=== PATIENT | female | born 1950 | race Caucasian/White ===

== ENCOUNTER 2022-10-31 07:26 | Outpatient (CLI) | payer MEDICARE, MEDICAID, SELFPAY ==
--- NOTE | ~2022-10-31 | PE_ITS ---
EXAMINATION: PET skull to mid thigh DATE: 10/31/2022 11:07 INDICATION: Multiple lung nodules TECHNIQUE: Blood glucose level was 104 mg/dL. 9.590 mCi of 18-fluorodeoxyglucose (18-FDG) was adminis tered i.v. Low dose computed tomography (CT) images were acquired from the base of the brain to the p roximal thighs for attenuation correction and anatomic localization. Positron emission tomography (PE T) images were acquired in the same distribution beginning 50 minutes after injection. Images includi ng fused PET/CT images were reconstructed in axial, coronal, and sagittal planes. Automated exposure control technique was employed. The dose-length product was 349.81mGy-cm. COMPARISON: None FINDINGS: Head/neck: There is symmetric increased activity in the oral cavity, palatine tonsils, parotid glands, submandi bular glands, laryngeal muscles, ocular muscles, upper cervical paraspinal muscles, right scalene mus gregor and bilateral sternocleidomastoid muscles, right greater than left, all without concerning CT cor relate and likely physiologic. No pathologically enlarged cervical lymphadenopathy or suspicious foci of increased FDG uptake in the visualized head or neck. Chest: Mild emphysema. 4 mm right upper lobe nodule. There is mild linear atelectasis/scarring at the bilate ral lung bases. Large calcified right lower lobe nodule and calcified right hilar and mediastinal lym ph nodes consistent with old granulomatous disease. There are several bilateral small noncalcified pu lmonary nodules. The largest nodule, also with the greatest FDG uptake measures 6 mm in maximal diame ter in the right middle lobe with maximal SUV of 2.6 which remains slightly below the level of the li cristo and dimitri views 2.8. No pleural effusion. Heart size is normal. Atherosclerotic coronary artery calcific location. No pericardial effusion. Thoracic aorta is normal in caliber. Minimal pathologica lly enlarged or abnormal FDG avid lymphadenopathy. Intrathoracic goiter with asymmetric enlargement o f the left thyroid lobe but without discrete thyroid nodule or abnormal increased FDG uptake. There i s increased FDG uptake in the right paraspinal musculature at the level of T7 without radiologic linda elate and also likely physiologic. Mild increased uptake associated with a healing fracture of the an terior right seventh rib. No other suspicious lytic, blastic or FDG avid bone lesions. Abdomen/pelvis/proximal thighs: Physiologic renal accumulation and excretion of FDG activity in the kidneys, bladder and along portio ns of ureters. Normal degree and heterogenous pattern of increased uptake throughout the liver withou t radiologic correlate or dominant FDG avid lesion. The gallbladder, pancreas, spleen and bilateral a drenal glands are normal. Mild to moderate uptake scattered throughout the bowels including the stoma ch without radiologic correlate, also likely physiologic. No other abnormal foci of increased FDG upt nick or pathologically enlarged lymphadenopathy in the abdomen, pelvis or proximal thighs. There is mi ld likely physiologic uptake extending craniocaudally along the left rectus femoris muscle without ra diologic correlate. Severe lumbar spondylosis with mild likely degenerative uptake associated with re gions of moderate type III sclerotic degenerative endplate changes and severe facet osteoarthritis. N o other suspicious FDG avid lytic or blastic bone lesions. IMPRESSION: 1. Minimal FDG activity associated with several noncalcified pulmonary nodules, the largest measuring 6 mm in the right middle lobe which remains below level of activity in the liver. Although most like ly old granulomatous disease sensitivity on PET for nodules this size is low and would recommend cont inued radiographic follow-up with CT in 6-12 months and correlation with any prior outside imaging.
[2022-10-31 09:40] LABS: Glucose Point of Care 104 mg/dl (65-105)
== END 2022-10-31 07:27 | disposition home or self-care (01) ==
PROVIDERS: PCP Internal Medicine
DX: R91.8 Other nonspecific abnormal finding of lung field (principal)
CPT/HCPCS: 78815; A9552

== ENCOUNTER 2024-12-01 12:33 | Outpatient (CLI) | payer MEDICARE, MEDICAID, SELFPAY ==
--- OUTSIDE RECORDS SUMMARY | 2024-12-01 14:11 | XMS_ITS | Referral Summary ---
Author Organization [facility] Address [facility] [place] [address] Care Team Providers Care Blocker Automatic Name Role Phone Aurelio Temple MD Primary Care Provider Allergies No known active allergies Medications alendronate (FOSAMAX) 70 mg tablet Take 70 mg by mouth once a week. TAKE 1 TAB BY MOUTH WEEKLY 0 02/25/2018 Active VENTOLIN HFA 90 mcg/actuation inhaler INL 2 PFS PO Q 4 H PRN 3 03/19/2018 Active PULMICORT FLEXHALER 180 mcg/actuation inhaler INL 2 PFS PO BID 3 03/20/2018 Active calcium carbonate-vitam in D3 500 mg(1,250mg) -400 unit chewable tablet Take 2 tablets by mouth every morning. Active atorvastatin (LIPITOR) 40 mg tablet TK 1 T PO QD 3 07/09/2018 Active fluticasone propionate (Flovent HFA) 110 mcg/actuation inhaler Flovent HFA 110 mcg/actuatio n aerosol inhaler Active HYDROcodone-parvin taminophen (NORCO) 5-325 mg per tablet Take 1 tablet by mouth 3 (three) times a day as needed 01/27/2021 Active dicyclomine (BENTYL) 10 mg capsule Take 10 mg by mouth 2 (two) times a day 01/14/2021 Active Active Problems Problem Noted Date Diagnosed Date Leg mass, right 04/19/2018 Overview (04/19/2018): Added automatically from request for surgery [id number] Immunizations Immunization Administration Dates Next Due Influenza, Quadrivalent, Split, Intramuscular Influenza, Trivalent, IM (MDV) 08/04/2015 Pneumococcal Conjugate PCV 13 02/22/2015 Td, adsorbed 06/15/2015 Tetanus toxoid, adsorbed 06/15/2015 Social History Tobacco Use Types Packs/Day Years Used Date Smoking Tobacco: Every Day Cigarettes 1.5 57.1 Started: 1967 Smokeless Tobacco: Never Tobacco Cessation:Counseling Given: Yes Alcohol Use Standard Drinks/Week Comments Yes 0 (1 standard drink = 0.6 oz pur e alcohol) rare AUDIT-C Answer Date Recorded Q1: How often do you have a drink containing alc ohol? 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[employer] Gender Identity Not on file Sexual Orientation Not on file Last Filed Vital Signs Vital Sign Reading Time Taken Comments Blood Pressure 153/94 08/05/2018 11:30 AM CDT Pulse 84 08/05/2018 11:30 AM CDT Temperature 36 C (96.8 F) 05/17/2018 10:50 AM CDT Respiratory Rate 15 08/05/2018 11:30 AM CDT Oxygen Saturation 93% 08/05/2018 11:30 AM CDT Inhaled Oxygen Concentration - - Weight 51.1 kg (112 lb 9.6 oz) 02/15/2021 9:48 A M CDT Height 152.4 cm (5') 02/15/2021 9:48 AM CDT Body Mass Index 21.99 02/15/2021 9:48 AM CDT Plan of Treatment Not on file Insurance [facility] MEDICARE SOLUTIONS MEDICARE [employer] MEDICARE SOLUTIONS Care Teams Blocker Automatic Relationship Specialty Start Date End Date Aurelio Temple MD PCP - General Internal Medicine 03/08/18
--- OUTSIDE RECORDS SUMMARY | 2024-12-01 14:11 | XMS_ITS | Clinical Summary ---
Author Organization [facility] Address [facility] [place] [address] Care Team Providers Care Brokerage Purchase And Sale Clerk Name Role Phone Aurelio Temple MD Primary [...] (04/19/2018): Added automatically from request for surgery [id number] Immunizations Immunization Administration Dates Next Due Influenza, Quadrivalent, Split, Intramuscular Influenza, Trivalent, IM (MDV) 08/04/2015 Pneumococcal Conjugate PCV 13 02/22/2015 Td, adsorbed 06/15/2015 Tetanus toxoid, adsorbed 06/15/2015 Surgical History Surgery Date Site/Laterality Comments HYSTERECTOMY 10/08/1981 - 10/07/1982 BLADDER SURGERY 10/08/1999 - 10/07/2000 SHOULDER SURGERY 10/08/2014 - 10/07/2015 EYE SURGERY 10/08/2016 - 10/07/2017 cataract FLUORO GUIDED INJECTION SHOU LDER RIGHT 08/05/2018 Right FLUORO GUIDED INJECTION SHOU LDER RIGHT 11/06/2018 Right Medical History Medical History Date Comments Hypercholesteremia Infectious viral hepatitis Osteoporosis Arthritis COPD (chronic obstructive pulmonary disease) (HC C) Family History Medical History Relation Name Comments Heart disease Brother Alzheimer's disease Father Cancer Father Hypertension Father Heart disease Mother Hypertension Mother Heart disease Sister Relation Name Status Comments Brother Father Mother Sister Social History Tobacco Use Types Packs/Day Years [...] on file 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
--- OUTSIDE RECORDS SUMMARY | 2024-12-01 14:11 | XMS_ITS | Data Portability ---
Author Organization [facility] YUMIKOIsatu Shirley Address [address] [place] [address] Care Team Providers Care Biometric Fingerprinting Technician Name Role Phone NATASHA TEMPLE Primary Care Provider Unavailabl e Assessment Encounter Date Assessment Date Assessment LastModified by Organization Details LastModified Time 12/20/2023 12/20/2023 Medical problems have been discussed refuses to take any immunizations those have been recommended she will follow-up with me in 4 months all her medicines have been reviewed as well as her diagnosis [email or web address] Not available 12/20/2023 21:43:52 03/12/2024 03/12/2024 Again smoking cessation has been discussed in detail blood work has been ordered we have given her a drug holiday from Fosamax before we may consider. After proper interval and bone mineral density she will follow-up with me in 4 months [email or web address] Not available 03/12/2024 21:58:39 07/09/2024 07/09/2024 Underwent health y food care instructions COPD hyperlipidemia and osteoporosis and osteoarthritis discussed her blood pressure was discussed she is going to back off caffeine she would like to try some conservative things walk little bit more eat a little marble cleaner and status starting on medicine just yet we will see her back in 4 months advised to stay up-to-date on COVID RSV flu Pneumovax and LD CT as well as mammogram and colon cancer screening [email or web address] Not available 07/20/2024 20:40:59 07/29/2024 07/29/2024 health assessments discussed collected and reviewed discussed screenings and immunizations ordered were appropriate patient agreeable Not available 08/10/2024 11:40:42 11/14/2024 11/14/2024 continue current therapy follow up in 4 months I have asked her to consider age-appropriate immunizations [email or web address] Not available 11/15/2024 15:47:18 Plan of Treatment Reminders Order Date Submit Date Provider Last Modified By Organization Details Last Modified Time Details Appointments ANY 15 2024 01:30P Maurizio Temple MD Not available Not available Not available Lab CBC w/ auto diff 2023 024 ROSH[facility]ON [facility], [address], [place], [address], 03/13/2024 08:24:04 lipid panel, serum 2023 024 ROSHARON [facility], [address], [place], [address], 03/13/2024 08:24:01 CMP, serum or plasma 2023 024 ROSHARON [facility], [address], [place], [address], 03/13/2024 08:24:03 Referral None recorded . Procedures None recorded . Surgeries None recorded . Imaging None recorded . Medication Orders None recorded . Patient TargetsNo targets recorded. Patient Instructions Encounter Date Encounter Id Patient Instructions Last Modified By Organization Details Last Modified Time 07/09/2024 [id number] eating healthy foods: care instructions [email or web address] Not available 07/20/2024 20:41:25 07/29/2024 [id number] Quitting Tobacco : Care Instructions Not available 07/29/2024 15:32:49 [facility] Preventive Checklist [email or web address] Not available 07/29/2024 15:32:49 eating healthy foods: care instructions [email or web address] Not available 07/29/2024 15:32:49 Reason for Referral None Reported. Results Created Date Observation Date Name Description Value Unit Range Abnormal Flag Note LastModifiedBy Organization Detail LastModifiedTime 03/12/20 24 03/13/2024 LIPID PANEL cholesterol, total 128 mg/dL 100-19 9 Not Available [facility] ([facility]) [address] [facility], [place], [address], 03/13/2024 08:24:01 03/12/20 24 03/13/2024 LIPID PANEL triglyceride s 121 mg/dL 0-149 Not Available [facility] ([facility]) [address] [place], [address], 03/13/2024 08:24:01 03/12/20 24 03/13/2024 LIPID PANEL HDL cholesterol 33 mg/dL >39 below low normal Not Available [facility] ([facility]) [address] [place], [address], 03/13/2024 08:24:01 03/12/20 24 03/13/2024 LIPID PANEL VLDL cholesterol britni 22 mg/dL 5-40 Not Available [facility] ([facility]) [address] [place], [address], 03/13/2024 08:24:01 03/12/20 24 03/13/2024 LIPID PANEL LDL chol calc ([facility]) 73 mg/dL 0-99 Not Available [facility] ([facility]) [address] [place], [address], 03/13/2024 08:24:01 03/12/20 24 03/13/2024 COMP. METAB OLIC PANEL (14) glucose 93 mg/dL 70-99 Not Available [facility] ([facility]) [address] [place], [address], 03/13/2024 08:24:03 03/12/20 24 03/13/2024 COMP. METAB OLIC PANEL (14) BUN 8 mg/dL 8-27 Not Available [facility] ([facility]) [address] [place], [address], 03/13/2024 08:24:03 03/12/20 24 03/13/2024 COMP. METAB OLIC PANEL (14) creatinine 0.72 mg/dL 0.57-1 .00 Not Available [facility] ([facility]) [address] [facility] [place], [address], 03/13/2024 08:24:03 03/12/20 24 03/13/2024 COMP. METAB OLIC PANEL (14) eGFR 88 mL/mi n/1.7 3 >59 Not Available [facility] ([facility]) [address] [place], [address], 03/13/2024 08:24:03 03/12/20 24 03/13/2024 COMP. METAB OLIC PANEL (14) BUN/creatini ne ratio 11 12-28 below low normal Not Available [facility] ([facility]) [address] [place], [address], 03/13/2024 08:24:03 03/12/20 24 03/13/2024 COMP. METAB OLIC PANEL (14) sodium 142 mmol/ L 134-14 4 Not Available [facility] ([facility]) [address] [place], [address], 03/13/2024 08:24:03 03/12/20 24 03/13/2024 COMP. METAB OLIC PANEL (14) potassium 3.4 mmol/ L 3.5-5. 2 below low normal Not Available [facility] ([facility]) [address] [place], [address], 03/13/2024 08:24:03 03/12/20 24 03/13/2024 COMP. METAB OLIC PANEL (14) chloride 97 mmol/ L 96-106 Not Available [facility] ([place] [facility]) [address] [place], [address], 03/13/2024 08:24:03 03/12/20 24 03/13/2024 COMP. METAB OLIC PANEL (14) carbon dioxide, total 29 mmol/ L 20-29 Not Available [facility] ([facility]) [address] [place], [address], 03/13/2024 08:24:03 03/12/20 24 03/13/2024 COMP. METAB OLIC PANEL (14) calcium 9.8 mg/dL 8.7-10 .3 Not Available [facility] ([facility]) [address] [place], [address], 03/13/2024 08:24:03 03/12/20 24 03/13/2024 COMP. METAB OLIC PANEL (14) protein, total 7.4 g/dL 6.0-8. 5 Not Available [facility] ([facility]) [address] [place], [address], 03/13/2024 08:24:03 03/12/20 24 03/13/2024 COMP. METAB OLIC PANEL (14) albumin 3.6 g/dL 3.8-4. 8 below low normal Not Available [facility] ([facility]) [address] [place], [address], 03/13/2024 08:24:03 03/12/20 24 03/13/2024 COMP. METAB OLIC PANEL (14) globulin, total 3.8 g/dL 1.5-4. 5 Not Available [facility] ([facility]) [address] [place], [address], 03/13/2024 08:24:03 03/12/20 24 03/13/2024 COMP. METAB OLIC PANEL (14) A/G ratio 0.9 1.2-2. 2 below low normal Not Available [facility] ([facility]) [address] [place], [address], 03/13/2024 08:24:03 03/12/20 24 03/13/2024 COMP. METAB OLIC PANEL (14) bilirubin, total 0.6 mg/dL 0.0-1. 2 Not Available [facility] ([facility]) [address] [place], [address], 03/13/2024 08:24:03 03/12/20 24 03/13/2024 COMP. METAB OLIC PANEL (14) alkaline phosphatase 154 IU/L 44-121 above high normal Not Available [facility] ([facility]) [address] [facility] [place], [address], 03/13/2024 08:24:03 03/12/20 24 03/13/2024 COMP. METAB OLIC PANEL (14) AST (SGOT) 18 IU/L 0-40 Not Available [facility] ([facility]) [address] [facility] [place], [address], 03/13/2024 08:24:03 03/12/20 24 03/13/2024 COMP. METAB OLIC PANEL (14) ALT (SGPT) 10 IU/L 0-32 Not Available [facility] ([facility]) [address] [facility] [place], [address], 03/13/2024 08:24:03 03/12/20 24 03/13/2024 CBC WITH DIFFE RENTI AL/PL ATELE T WBC 14.5 x10e3 /uL 3.4-10 .8 above high normal Not Available [facility] ([facility]) [address] [facility] [place], [address], 03/13/2024 08:24:04 03/12/20 24 03/13/2024 CBC WITH DIFFE RENTI AL/PL ATELE T RBC 5.26 x10e6 /uL 3.77-5 .28 Not Available [facility] ([facility]) [address] [facility] [place], [address], 03/13/2024 08:24:04 03/12/20 24 03/13/2024 CBC WITH DIFFE RENTI AL/PL ATELE T hemoglobin 15.3 g/dL 11.1-1 5.9 Not Available [facility] ([facility]) [address] [facility] [place], [address], 03/13/2024 08:24:04 03/12/20 24 03/13/2024 CBC WITH DIFFE RENTI AL/PL ATELE T hematocrit 46.4 % 34.0-4 6.6 Not Available [facility] ([facility]) [address] [facility], [place], [address], 03/13/2024 08:24:04 03/12/20 24 03/13/2024 CBC WITH DIFFE RENTI AL/PL ATELE T MCV 88 fL 79-97 Not Available [facility] ([facility]) [address] [facility], [place], [address], 03/13/2024 08:24:04 03/12/20 24 03/13/2024 CBC WITH DIFFE RENTI AL/PL ATELE T MCH 29.1 pg 26.6-3 3.0 Not Available [facility] ([facility]) [address] [facility], [place], [address], 03/13/2024 08:24:04 03/12/20 24 03/13/2024 CBC WITH DIFFE RENTI AL/PL ATELE T MCHC 33.0 g/dL 31.5-3 5.7 Not Available [facility] ([facility]) [address] [facility], [place], [address], 03/13/2024 08:24:04 03/12/20 24 03/13/2024 CBC WITH DIFFE RENTI AL/PL ATELE T RDW 12.5 % 11.7-1 5.4 Not Available [facility] ([facility]) [address] [facility], [place], [address], 03/13/2024 08:24:04 03/12/20 24 03/13/2024 CBC WITH DIFFE RENTI AL/PL ATELE T platelets 323 x10e3 /uL 150-45 0 Not Available [facility] ([facility]) [address] [facility], [place], [address], 03/13/2024 08:24:04 03/12/20 24 03/13/2024 CBC WITH DIFFE RENTI AL/PL ATELE T neutrophils 74 % notest ab. Not Available [facility] ([facility]) [address] [facility], [place], [address], 03/13/2024 08:24:04 03/12/20 24 03/13/2024 CBC WITH DIFFE RENTI AL/PL ATELE T lymphs 18 % notest ab. Not Available [facility] ([facility]) [address] [facility], [place], [address], 03/13/2024 08:24:04 03/12/20 24 03/13/2024 CBC WITH DIFFE RENTI AL/PL ATELE T monocytes 6 % notest ab. Not Available [facility] ([facility]) [address] [facility], [place], [address], 03/13/2024 08:24:04 03/12/20 24 03/13/2024 CBC WITH DIFFE RENTI AL/PL ATELE T eos 1 % notest ab. Not Available [facility] ([facility]) [address] [facility], [place], [address], 03/13/2024 08:24:04 03/12/20 24 03/13/2024 CBC WITH DIFFE RENTI AL/PL ATELE T basos 1 % notest ab. Not Available [facility] ([facility]) [address] [facility] [address], [place], [address], 03/13/2024 08:24:04 03/12/20 24 03/13/2024 CBC WITH DIFFE RENTI AL/PL ATELE T neutrophils (absolute) 10.8 x10e3 /uL 1.4-7. 0 above high normal Not Available [facility] ([facility]) [address] [facility] [address], [place], [address], 03/13/2024 08:24:04 03/12/20 24 03/13/2024 CBC WITH DIFFE RENTI AL/PL ATELE T lymphs (absolute) 2.6 x10e3 /uL 0.7-3. 1 Not Available [facility] ([facility]) [address] [facility] [address], [place], [address], 03/13/2024 08:24:04 03/12/20 24 03/13/2024 CBC WITH DIFFE RENTI AL/PL ATELE T monocytes(ab solute) 0.8 x10e3 /uL 0.1-0. 9 Not Available [facility] ([facility]) [address] [facility] [address], [place], [address], 03/13/2024 08:24:04 03/12/20 24 03/13/2024 CBC WITH DIFFE RENTI AL/PL ATELE T eos (absolute) 0.1 x10e3 /uL 0.0-0. 4 Not Available [facility] ([facility]) [address] [facility] [address], [place], [address], 03/13/2024 08:24:04 03/12/20 24 03/13/2024 CBC WITH DIFFE RENTI AL/PL ATELE T baso (absolute) 0.1 x10e3 /uL 0.0-0. 2 Not Available [facility] ([facility]) [address] [facility], [place], [address], 03/13/2024 08:24:04 03/12/20 24 03/13/2024 CBC WITH DIFFE RENTI AL/PL ATELE T immature granulocytes 0 % notest ab. Not Available [facility] ([facility]) [address] [facility], [place], [address], 03/13/2024 08:24:04 03/12/20 24 03/13/2024 CBC WITH DIFFE RENTI AL/PL ATELE T immature grans (abs) 0.0 x10e3 /uL 0.0-0. 1 Not Available [facility] ([facility]) [address] [facility] [address], [place], [address], 03/13/2024 08:24:04 07/28/20 24 03/06/2023 DEXA No observ ation record ed. Not Available 2023 10:53:46 07/29/20 24 05/03/2020 colon oscop y mahin perdue (PROC ) No observ ation record ed. Natasha Temple MD [address], [place], [address], 07/30/2024 12:07:51 Result Notes None recorded. Problems Name Problem SNOMED Code Status Onset Date Resolution Date Notes Provider Name and Address Organization Details Recorded Time Hyperlipidemia 98201644 Active 2023 Laura Florez MA null, [place] - [facility] 15:55:05 Osteoporosis 39825073 Active 2023 Natasha Temple MD Attn: Accountin g,[address] [facility], [place], [address], [facility] 4 21:53:50 Chronic obstructive pulmonary disease 45509150 Active 2023 Natasha Temple MD Attn: Accountin g,[address] [facility], [place], [address], [facility] - [facility] 4 21:53:50 Chronic pain syndrome 804766170 Active 2023 Natasha Temple MD Attn: Accountin g,[address] [facility], [place], [address], [place] - [facility] 4 21:53:50 Problem Notes None recorded. Procedures Surgical History Date Name Laterality Status Provider Name and Address Organization Details Recorded Time Eye Surgery completed Jani Yee MA [facility] 12/20/2023 16:35:18 Joint Replacement completed Jani Yee MA [facility] 12/20/2023 16:35:25 Tonsillectomy completed Jani Yee MA [facility] 12/20/2023 16:35:32 Dilation and Curettage completed Jani Yee MA [facility] 12/20/2023 16:35:38 partial hysterectomy completed Jani Yee MA [facility] 12/20/2023 16:35:51 Imaging Results Imaging Date Name Status LastModified by Organiz ation Details LastModified Time 03/06/2023 [facility] no t available 07/28/2024 10:53:46 05/03/2020 colon[facility] (PROC[facility] Natasha Temple MD [address], [place], [address], 07/30/2024 12:07:51 Procedure Notes None recorded. Medical Equipment None Reported. Allergies No known drug allergies Medications Name Sig Start Date Stop Date Status Note LastModified by Organization Details LastModified Time atorvastatin 40 mg tablet TAKE 1 TABLET BY MOUTH EVERY DAY active Not Available Not Available No t Available meloxicam 15 mg tablet TAKE 1 TABLET BY MOUTH DAILY NEEDED active Not Available Not Available No t Available alendronate 70 mg tablet TAKE 1 TABLET BY MOUTH EVERY WEEK 2024 active Not Available Not Available Not Avai lable morphine ER 15 mg tablet,extend ed release TAKE 1 TABLET BY MOUTH EVERY 12 HOURS active Not Available Not Available No t Available albuterol sulfate HFA 90 mcg/actuation aerosol inhaler INHALE 1 PUFF BY MOUTH EVERY 4 HOURS NEEDED active Not Available Not Available No t Available dicyclomine 10 mg capsule TAKE 1 CAPSULE BY MOUTH TWICE DAILY active Not Available Not Available No t Available Anoro Ellipta 62.5 mcg-25 mcg/actuation powder for inhalation INHALE 1 PUFF BY MOUTH EVERY DAY active Not Available Not Available No t Available naloxone 4 mg/actuation nasal spray CALL 911. SPR CONTENTS OF ONE SPRAYER (0.1ML) INTO ONE NOSTRIL. REPEAT IN 2-3 MIN IF SYMPTOMS OF OPIOID EMERGENCY PERSIST, ALTERNATE NOSTRILS active Not Available Not Available No t Available Vitals Date Recorded Body weight Body mass index (BMI) Body height Heart rate Oxygen saturation Oxygen saturation in Arterial blood by Pulse oximetry Systolic blood pressure Diastolic blood pressure Provider Name and Address Organization Details Last Updated DateTime 4 43882.1 9 g 16 kg/m2 151.13 cm 90 /min 95 % 95 % 136 mm[Hg] 80 mm[Hg] Jani Yee MA [place] - [facility] 4 16:40:38 Date Recorded Body height Body mass index (BMI) Body weight Heart rate Oxygen saturation Oxygen saturation in Arterial blood by Pulse oximetry Systolic blood pressure Diastolic blood pressure Provider Name and Address Organization Details Last Updated DateTime 4 151.13 cm 16.2 kg/m2 62209.5 g 95 /min 93 % 93 % 128 mm[Hg] 70 mm[Hg] Selma Thapa MA [facility] 4 15:05:12 Date Recorded Body height Body mass index (BMI) Body weight Heart rate Oxygen saturation Oxygen saturation in Arterial blood by Pulse oximetry Systolic blood pressure Diastolic blood pressure Provider Name and Address Organization Details Last Updated DateTime 4 151.13 cm 16.5 kg/m2 22862.1 7 g 86 /min 95 % 95 % 140 mm[Hg] 90 mm[Hg] Elmira Aguilera MA [facility] 4 14:56:13 Date Recorded Body height Body mass index (BMI) Body weight Heart rate Oxygen saturation Oxygen saturation in Arterial blood by Pulse oximetry Systolic blood pressure Diastolic blood pressure Provider Name and Address Organization Details Last Updated DateTime 4 151.13 cm 16.5 kg/m2 92293.8 9 g 84 /min 96 % 96 % 124 mm[Hg] 68 mm[Hg] Selma Thapa MA [facility] 4 14:53:17 Date Recorded Pain severity - 0-10 verbal numeric rating [Score] - Reported Provider Name and Address Organization Details Last Updated DateTime 07/29/2024 0 Margarita Ramos [facility] 07/29/2024 15:07:18 Date Recorded Body height Body mass index (BMI) Body weight Heart rate Oxygen saturation Oxygen saturation in Arterial blood by Pulse oximetry Systolic blood pressure Diastolic blood pressure Provider Name and Address Organization Details Last Updated DateTime 5 151.13 cm 17.1 kg/m2 87023.9 4 g 82 /min 95 % 95 % 122 mm[Hg] 70 mm[Hg] Jani eYe MA [facility] 5 12:46:49 Social History Question Answer Notes LastModified by Organizat ion Details LastModified Time Tobacco Smoking Status Current Every Day Smoker Jani Yee MA null, [facility] 12/20/2023 16:34:12 Do You Have An Advance Directive? No Information n ot available 12/20/2023 What Is Your Level Of Alcohol Consumption? None Information not available 12/20/2023 Are You Blind Or Do You Have Difficulty Seeing? No Information n ot available 12/20/2023 What Is Your Level Of Caffeine Consumption? Heavy Information not available 12/20/2023 In The 14 Days Before Symptom Onset, Have You Had Close Contact With A Laboratory-confirm ed COVID-19 While That Case Was Ill? No Information n ot available 03/12/2024 In The 14 Days Before Symptom Onset, Have You Had Close Contact With A Person Who Is Under Investigation For COVID-19 While That Person Was Ill? No Information not available 03/12/2024 Have You Been To An Area Known To Be High Risk For COVID-19? No Information not available 03/12/2024 Are You Currently Employed? No Information not available 03/12/2024 Are You Deaf Or Do You Have Serious Difficulty Hearing? No Information not available 12/20/2023 What Type Of Diet Are You Following? REGULAR Information n ot available 12/20/2023 Are There Any Guns Present In Your Home? No Information not available 12/20/2023 In The Past 7 Days, How Many Days Did You Exercise? 0 Information not available 07/29/2024 In The Past 7 Days, How Much Pain Have You [place]? None Information not available 07/29/2024 In General, Would You Say You Health Is: Good Information not available 07/29/2024 How Would You Describe The Condition Of Your Mouth And Teeth- Including False Teeth Or Dentures? Good Information n ot available 07/29/2024 Each Night, How Many Hours Of Sleep Do You Get? 5 Information no t available 07/29/2024 Has Anyone Ever Told You That You Snore? Yes Information not available 07/29/2024 In The Past 7 Days, How Often Have You [place] Sleepy In The Daytime? Rarely Information not available 07/29/2024 # Alcohol Drinks Per Week 0 Information not available 07/29/2024 What Was The Date Of Your Most Recent Tobacco Screening? 11/14/2024 Information not available 11/14/2024 What Is Your Current Pack Years? 20-29packyea rs Information not available 12/20/2023 What Is Your Relationship Status? Information not available 12/20/2023 Do You Use Your Seat Belt Or Car Seat Routinely? Yes Information not available 12/20/2023 Do You Have Smoke And Carbon Monoxide Detectors In Your Home? No Information not available 07/29/2024 At What Age Did You Start Smoking Tobacco? 33 Information not available 12/20/2023 How Much Tobacco Do You Smoke? 1 PPD Information not available 12/20/2023 Do You Feel Stressed (tense, Restless, Nervous, Or Anxious, Or Unable To Sleep At Night)? [id number] Information not available 12/20/2023 Do You Use Any Illicit Or Recreational Drugs? No Information not available 12/20/2023 Do You Use Sunscreen Routinely? No Information not available 12/20/2023 Has Tobacco Cessation Counseling Been Provided? Yes Information not available 07/29/2024 On What Date Was Tobacco Cessation Counseling Provided? 11/14/2024 Information not available 11/14/2024 How Many Years Have You Smoked Tobacco? 40 Information not available 12/20/2023 Do You Or Have You Ever Used Any Other Forms Of Tobacco Or Nicotine? No Information not available 12/20/2023 Sex: Female Functional Status Question Answer Note LastModified by Organization D etails LastModified Time Are you able to care for yourself? Yes Information n ot available 12/20/2023 What is your exercise level? None Information not available 12/20/2023 Mental Status None recorded. Family History Relationship Description Onset Age of this Age Resolved Age Notes LastModified by Organization Details LastModified Time Father Dementia [email or web address] Not availa ble 12/20/2023 16:32:44 Father Heart disease [email or web address] Not available 12/06 16:33:03 Father Malignant tumor of prostate [email or web address] Not available 12/06 16:33:12 Brother Heart disease [email or web address] Not available 12/06 16:33:02 Mother Heart disease [email or web address] Not available 12/06 16:33:03 Sister Heart disease [email or web address] Not available 12/06 16:33:03 Medical History Condition Response Coronary Artery Disease N Other N High Blood Pressure N Atrial Fibrillation N Kidney or Bladder Problems N Thyroid Problems N GI Problems N Depression N COPD Y Blood Clots N Have you had a mammogram in the last yea r? N Skin Problems N Anemia N Heart Attack (NE) N Anxiety Disorder N Diabetes N Muscle, Joint, or Bone Problems N Seizures/Epilepsy N Have you had a colonoscopy in the last 1 0 years? Y Acid Reflux (GERD) N Cancer N Stroke N Asthma N Allergies N Have you had a PSA blood test in the las t year? N High Cholesterol Y Hepatitis N Liver Disease N Headaches N Heart Failure N Osteoporosis Y Gynecological HistoryNo gynecological history recorded. Obstetrics History GPAL:G 0 P 0 0 0 0 Immunizations Vaccine Type Date Status Note Provider Nam e and Address Organization Details Recorded Time Influenza, split virus, quadrivalent, preservative 5 completed Margarita wright, [place] - [facility] 07/28/2024 10:48:59 Pneumococcal conjugate PCV 13 5 completed Margarita wright, [place] - [facility] 07/28/2024 10:48:59 Influenza, split virus, trivalent, preservative 5 completed Marg[place] [facility] 07/28/2024 10:48:59 Td (adult), 2 Lf tetanus toxoid, preservative free, adsorbed 5 completed Margar[place] [facility] 07/28/2024 10:48:59 Pneumococcal conjugate PCV20, polysaccharide [id number] conjugate, adjuvant, PF 4 completed Natasha Temple MD Attn: Accounting[address] [place], [address], [facility] - [facility] 08/10/2024 11:40:13 Past Encounters Encounter ID Performer Location Encounter Start Date Encounter Closed Date Diagnosis/Indication Diagnosis SNOMED-CT Code Diagnosis ICD10 Code Diagnosis Note [id number] Natasha Temple MD [facility] (Adult Med) [address] [place] [address] [phone] 12/20/2023 16:01:03 12/20/2023 17:13:38 Chronic obstructive pulmonary disease 08009360 J44.9 Osteoporosis 02132586 M8 1.0 Nicotine dependence 5629 4008 F17.200 Chronic pain syndrome 37 0698650 G89.4 [id number] MD Conrad Rausch (Adult Med) [address] [place] [address] [phone] 03/12/2024 14:44:00 03/12/2024 15:56:14 Hyperlipidemia 82139827 E78.5 Long-term drug therapy [id number] Z79.899 Chronic pain syndrome 37 8865220 G89.4 Chronic ob structive pulmonary disease 85627933 J44.9 Osteoporosis 57914090 M8 1.0 [id number] MD Conrad Rausch (Adult Med) [address] [place] [address] [phone] 07/09/2024 14:28:02 07/09/2024 16:09:10 Underweight 777380569 R63.6 Chronic ob structive pulmonary disease 04067042 J44.9 Hyperlipidemia 67493854 E78.5 Osteoporosis 82835402 M8 1.0 [id number] MD Conrad Rausch (Adult Med) [address] [place] [address] [phone] 07/29/2024 14:40:03 07/29/2024 15:54:02 Adult health examination [id number] Z00.00 Health Risk Assessment collected and reviewed Administra tion of pneumococcal vaccine 15227507 Z23 [id number] MD Conrad Rausch (Adult Med) [address] [place] [address] [phone] 11/14/2024 12:18:19 11/14/2024 13:03:13 Chronic obstructive pulmonary disease [id number] J44.9 Chronic pain syndrome 37 3213258 G89.4 Hyperlipidemia 91796070 E78.5 Osteoporosis 57720865 M8 1.0 Health Concerns Section Related Observation LastModified by Organization Detai ls LastModified Time None Recorded Concern Status LastModified by Organization Details LastModified Time None Recorded Advance Directives Directive N: Payers Encounter Date Sequence Insurance Name Policy Number Policy Mcpherson Covered Member ID Mcpherson Member ID Guarantor Name 12/20/2023 1 [facility] (MEDICARE REPLACEMENT/AD VANTAGE - PPO) [id number] Angela Jacksonman [id number] Angela Moses 12/20/2023 2 [place] [facility] Angela Jacksonman [id number] Angela Moses 03/12/2024 1 [facility] (MEDICARE REPLACEMENT/AD VANTAGE - PPO) [id number] Angela Stahl Moses [id number] Angela Moses 03/12/2024 2 [place] [facility] Angela Jacksonman [id number] Angela Moses 07/09/2024 1 [facility] (MEDICARE REPLACEMENT/AD VANTAGE - PPO) [id number] Angela Maribeth Moses [id number] Angela Moses 07/09/2024 2 [place] OR [place]ARE REPLACEMENT PRIMARY) Angela Jacksonman [id number] Angela Moses 07/29/2024 1 [facility] (MEDICARE REPLACEMENT/AD VANTAGE - PPO) [id number] Angela Moses [id number] Angela Moses 07/29/2024 2 [place]IC[place] REPLACEMENT PRIMARY) Angela Jacksonman [id number] Angela Moses 11/14/2024 1 [facility] (MEDICARE REPLACEMENT/AD VANTAGE - PPO) [id number] Angela Stahl Moses [id number] Angela Moses 11/14/2024 2 [place]ARE OR [place]ICARE REPLACEMENT [place]IMARY) Angela Jacksonman [id number] Angela Moses Notes Date Note Type Note Provider Name and Address Organization Details Recorded Time 12/20/2023 text/html COPD continues t o smoke uses her inhaler no shortness of breath. Taking atorvastatin tries to watch her diet. IBS has been stable osteoarthritis stable she continues to see pain management as well osteoporosis taking takes the alendronate without any side effects Natasha Temple MD Attn: Accounting,[address], [place], [address], [place] [facility] 12/20/2023 21:44:10 03/12/2024 text/html COPD continues t o smoke no shortness of breath pain controlled on current meds osteoporosis no new bone pain Natasha Temple MD Attn: [employer],[address], [place], [address], [facility] 03/12/2024 21:58:59 07/09/2024 text/html COPD denies coug h wheezing or shortness on breath. Osteoporosis taking alendronate with nights with no side effects. Dyslipidemia taking her atorvastatin trying to follow a low-fat diet. Natasha Temple MD Attn: [address] [facility], [place], [address], [facility] 07/20/2024 20:41:27 07/29/2024 text/html MAW 2Reported bypatient.Diet and Nutrition:healthy diet Fracture Risk:no sudden unexplained fractures;history of fractures Concentration and Memory:no decreased concentrating ability; no memory lapses or loss; does not forget words Speech/Motor difficulties:no speech difficulties; no difficulty expressing formulated concepts; no difficulty with fine manipulative tasks; no difficulty writing/copying; no slowed reaction time; does not knock things over when trying to pick them up Hearing:no loss of hearing Vision:worse both distance and near(glasses) Activities of Daily Living:able to bathe with limited or no assistance; able to contol urination and bowels; able to dress with limited or no assistance; able to feed self with limited or no assistance; able to get out of chair or bed with limited or no assistance; able to groom with limited or no assistance; able to toilet with limited or no assistance Instrumental Activities of Daily Living:able to do house work with limited or no assistance; able to grocery shop with limited or no assistance; able to manage medications with limited or no assistance; able to manage money with limited or no assistance; able to prepare meals with limited or no assistance; able to use the phone with limited or no assistance Falls Risk Assessment:no frequent falls while walking; no fall in the past year; no fall since last visit; no dizziness/vertigo Home Safety:no unsafe jerri hazzards; no unsafe stairs; working smoke/CO detectors; practicing 'safer sex'; no fire arms; has hand bars in the bathroom/shower; good lighting in the home Natasha Temple MD Attn: [employer] [place], [address], [facility] 08/10/2024 11:40:57 11/14/2024 text/html COPD continues t o smoke uses her inhaler no shortness of breath. Taking atorvastatin tries to watch her diet. IBS has been stable osteoarthritis stable she continues to see pain management as well osteoporosis taking takes the alendronate without any side effects Natasha Temple MD Attn: [address] [facility], [place], [address], [place] [facility] 11/15/2024 15:47:33 OBGyn Episode No OBEpisode recorded.
--- OUTSIDE RECORDS SUMMARY | 2024-12-01 14:11 | XMS_ITS | CONTINUITY OF CARE DOCUMENT ---
Author Name beatriz henderson Address Unknown Organization [facility] Address [id number] [place] [address] [address] [place] [address] Phone [phone] Care Team Providers Care Rivet Tosser Name Role Phone LUPE JAQUEZ MD, LORE Unavailable NATASHA BRAYNT MD Unavailable INSURANCE PROVIDERS Payer name Policy type / Coverage type [employer] ID [facility] [facility] Medicaid 1 [id number] [place] [employer] Medicare [id number]
--- OUTSIDE RECORDS SUMMARY | 2024-12-01 14:11 | XMS_ITS | Clinical Summary ---
Author Organization [facility] Address [address] [place] [address] Care Team Providers Care Sanding Line Operator Name Role Phone Unavailable Primary Care Provider Unavailabl e Social History Tobacco Use Types Packs/Day Years Used Date Smoking Tobacco: Never Assessed Comments Unknown Sex and Gender Information Value Date Recorded Sex Assigned at Not on file Legal Sex Female 6:33 PM CDT Gender Identity Not on file Sexual Orientation Not on file Plan of Treatment Health Maintenance Due Date Last Done Comments Colorectal Cancer Screening Colonoscopy (10 Years) 1950 Hepatitis C 1968 DTaP, Tdap and Td Vaccines ( 1 - Tdap) 1969 Mammogram Screening 1990 Zoster Vaccines (1 of 2) 2000 Dexa Scan (General) 2015 Pneumococcal Vaccine: 65+ Ye ars (1 of 1 - PCV) 2015 COVID-19 Vaccine (2023-2 5 season) 2024 Influenza Adult (#1) 2024 RSV Immunization or 60+ Years (1 - 1-dose 75+ series) 2025 Meningococcal B Vaccine Aged Out No l onger eligible based on patient's age to complete this topic Meningococcal Vaccine Aged Out No dk lorie eligible based on patient's age to complete this topic RSV Immunizations Under 20 Months Aged Out No longer eligible based on patient's age to complete this topic
--- NOTE | 2024-12-02 12:50 | WPDPFTINT ---
PFT Procedure Performed PFT Procedure Performed Spirometry with Pre/Post Bronchodilator Plethysmography (Lung Vol) Diffusing Cap (DLCO) Flow Vol Loop PFT Interpretation Lung volumes were measured with the body plethysmography method. Lung volumes are unremarkable. Spirometry showed diminished expiratory flow rates and a borderline low FEV1 to FVC ratio of 64%, indicating obstructive airway disease. Following administration of a bronchodilator there was no significant increase in expiratory flow rates. Lung diffusion capacity is severely reduced at 31% predicted. This diminished lung diffusion capacity coupled with a low alveolar volume and a low DLCO/VA ratio indicates loss of alveolar capillary structure with loss of lung volume as seen in emphysema or interstitial lung disease. The flow-volume loop is consistent with obstructive airway disease. Impression: Moderate obstructive airway disease with no response to bronchodilators on this testing. Severely reduced lung diffusion capacity.
== END 2024-12-01 12:34 | disposition home or self-care (01) ==
LOC: ANHPFT 12:35
PROVIDERS: PCP Internal Medicine; Visit Provider Internal Medicine Pulmonary Disease
DX: J44.9 Chronic obstructive pulmonary disease, unspecified (principal)
CPT/HCPCS: 94060; 94726; 94729

== ENCOUNTER 2024-12-03 12:44 | Outpatient (CLI) | payer MEDICARE, MEDICAID, SELFPAY ==
--- NOTE | ~2024-12-03 | CT_ITS ---
EXAMINATION: CT diagnostic chest wo con DATE: 12/03/2024 13:03 INDICATION: abn findings of lung field TECHNIQUE: Computed tomography (CT) of the chest was performed without intravenous contrast. Addition al 3D reconstructions utilizing coronal maximum intensity projection (MIP) were performed. Automated exposure control and iterative reconstruction technique were employed. The dose-length product was 13 7.07 mGy-cm. COMPARISON: PET/CT dated 10/31/2022 FINDINGS: Mild emphysema. Interval increase in size of a previously 5 mm, currently 8 x 5 x 4 mm right lower lo be nodule on series 4, image 48. No interval change in a second 5 mm right lower lobe nodule on image 52. Unchanged linear bands of discoid atelectasis/scarring in the lingula and bilateral lower lobes. There are few scattered small calcified nodules in the right lower lobe along with calcified right h ilar lymph nodes and a couple punctate hepatic calcifications consistent with old granulomatous disea se. No pneumonia, pulmonary edema or pleural effusion. Heart size is normal. Atherosclerotic coronary artery calcifications. No pericardial effusion. Thoracic aorta is normal in caliber. No pathological ly enlarged thoracic lymphadenopathy. Subcentimeter low-attenuation cyst at the dome of the liver. Se john lower cervical, upper thoracic and upper lumbar spondylosis. Chronic mild anterior wedging of a couple mid thoracic vertebral bodies. IMPRESSION: 1. Mild emphysema with equivocal mild increase in size of a previously 5 mm, currently 8 x 5 x 4 mm r ight lower lobe nodule over the interval 2 years of imaging. Direct comparison is however limited by the lower resolution and slightly greater slice thickness on the prior PET/CT and the differences cou ld be related to slight differences in the plane of imaging. Would recommend comparison with any prio r comparable CT imaging. Percutaneous biopsy would be challenging given the current small size of the nodule and would recommend additional 6 month follow-up low-dose noncontrast chest CT. Reviewed, dictated and finalized at location B. [facility] COMMUNICATIONS IMPRESSION: 1. Mild emphysema with equivocal mild increase in size of a previously 5 mm, cu rrently 8 x 5 x 4 mm right lower lobe nodule over the interval 2 years of imagi ng. Direct comparison is however limited by the lower resolution and slightly g reater slice thickness on the prior PET/CT and the differences could be related to slight differences in the plane of imaging. Would recommend comparison with any prior comparable CT imaging. Percutaneous biopsy would be challenging give n the current small size of the nodule and would recommend additional 6 month f ollow-up low-dose noncontrast chest CT.
--- OUTSIDE RECORDS SUMMARY | 2024-12-03 14:14 | XMS_ITS | Clinical Summary ---
Author Organization [facility] Address [address] [place] [address] Care Team Providers Care Rougher Merchant Mill Name Role Phone Unavailable Primary Care Provider [...]
--- OUTSIDE RECORDS SUMMARY | 2024-12-03 14:14 | XMS_ITS | Data Portability ---
Author Organization [facility] YUMIKOIsatu Shirley Address [address] [place] [address] Care Team Providers Care Financial Secretary Name Role Phone NATASHA TEMPLE Primary Care Provider Unavailabl e Assessment Encounter Date Assessment Date Assessment LastModified by Organization Details LastModified Time 12/20/2023 12/20/2023 Medical problems have been discussed refuses to take any immunizations those have been recommended she will follow-up with me in 4 months all her medicines have been reviewed as well as her diagnosis [email or web address] Not available 12/20/2023 21:43:52 03/12/2024 03/12/2024 Again smoking cessation has been discussed in detail blood work has been ordered we have given her a drug holiday from Fosamax before we may consider. 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 and status starting on medicine just yet we will see her back in 4 months advised to stay up-to-date on COVID RSV flu Pneumovax and LD CT as well as mammogram and colon cancer screening [email or web address] Not available 07/20/2024 20:40:59 07/29/2024 07/29/2024 health assessments discussed collected and reviewed discussed screenings and immunizations ordered were appropriate patient agreeable [email or web address] Not available 08/10/2024 11:40:42 11/14/2024 11/14/2024 continue current therapy follow up in 4 months I have asked her to consider age-appropriate immunizations [email or web address] Not available 11/15/2024 15:47:18 Plan of Treatment Reminders Order Date Submit Date Provider Last Modified By Organization Details Last Modified Time Details Appointments ANY 15 2024 01:30P Maurizio Temple MD Not available Not available Not available Lab CBC w/ auto diff 2023 024 [facility], [address], [place], [address], 03/13/2024 08:24:04 lipid panel, serum 2023 024 [facility], [address], [place], [address], 03/13/2024 08:24:01 CMP, serum or plasma 2023 024 [facility], [address], [place], [address], 03/13/2024 08:24:03 Referral None recorded . Procedures None recorded . Surgeries None recorded . Imaging None recorded . Medication Orders None recorded . Patient TargetsNo targets recorded. Patient Instructions Encounter Date Encounter Id Patient Instructions Last Modified By Organization Details Last Modified Time 07/09/2024 [id number] eating healthy foods: care instructions [email or web address] Not available 07/20/2024 20:41:25 07/29/2024 [id number] Quitting Tobacco : Care Instructions [email or web address] Not available 07/29/2024 15:32:49 [facility] Preventive Checklist [email or web address] Not available 07/29/2024 15:32:49 eating healthy foods: care instructions [email or web address] Not available 07/29/2024 15:32:49 Reason for Referral None Reported. Results Created Date Observation Date Name Description Value Unit Range Abnormal Flag Note LastModifiedBy Organization Detail LastModifiedTime 03/12/20 24 03/13/2024 LIPID PANEL cholesterol, total 128 mg/dL 100-19 9 Not Available [facility] ([facility]) [address] [facility], [place], [address], 03/13/2024 08:24:01 03/12/20 24 03/13/2024 LIPID PANEL triglyceride s 121 mg/dL 0-149 Not Available [facility] ([facility]) [address] [place], [address], 03/13/2024 08:24:01 03/12/20 24 03/13/2024 LIPID PANEL HDL cholesterol 33 mg/dL >39 below low normal Not Available [facility] ([facility]) [address] [place], [address], 03/13/2024 08:24:01 03/12/20 24 03/13/2024 LIPID PANEL VLDL cholesterol britni 22 mg/dL 5-40 Not Available [facility] ([facility]) [address] [place], [address], 03/13/2024 08:24:01 03/12/20 24 03/13/2024 LIPID PANEL LDL chol calc ([facility]) 73 mg/dL 0-99 Not Available [facility] ([facility]) [address] [place], [address], 03/13/2024 08:24:01 03/12/20 24 03/13/2024 COMP. METAB OLIC PANEL (14) glucose 93 mg/dL 70-99 Not Available [facility] ([facility]) [address] [place], [address], 03/13/2024 08:24:03 03/12/20 24 03/13/2024 COMP. METAB OLIC PANEL (14) BUN 8 mg/dL 8-27 Not Available [facility] ([facility]) [address] [place], [address], 03/13/2024 08:24:03 03/12/20 24 03/13/2024 COMP. METAB OLIC PANEL (14) creatinine 0.72 mg/dL 0.57-1 .00 Not Available [facility] ([facility]) [address] [place], [address], 03/13/2024 08:24:03 03/12/20 24 03/13/2024 COMP. METAB OLIC PANEL (14) eGFR 88 mL/mi n/1.7 3 >59 Not Available [facility] ([facility]) [address] [place], [address], 03/13/2024 08:24:03 03/12/20 24 03/13/2024 COMP. METAB OLIC PANEL (14) BUN/creatini ne ratio 11 12-28 below low normal Not Available [facility] ([facility]) [address] [place], [address], 03/13/2024 08:24:03 03/12/20 24 03/13/2024 COMP. METAB OLIC PANEL (14) sodium 142 mmol/ L 134-14 4 Not Available [facility] ([facility]) [address] [place], [address], 03/13/2024 08:24:03 03/12/20 24 03/13/2024 COMP. METAB OLIC PANEL (14) potassium 3.4 mmol/ L 3.5-5. 2 below low normal Not Available [facility] ([facility]) [address] [place], [address], 03/13/2024 08:24:03 03/12/20 24 03/13/2024 COMP. METAB OLIC PANEL (14) chloride 97 mmol/ L 96-106 Not Available [facility] ([place] [facility]) [address] [place], [address], 03/13/2024 08:24:03 03/12/20 24 03/13/2024 COMP. METAB OLIC PANEL (14) carbon dioxide, total 29 mmol/ L 20-29 Not Available [facility] ([facility]) [address] [place], [address], 03/13/2024 08:24:03 03/12/20 24 03/13/2024 COMP. METAB OLIC PANEL (14) calcium 9.8 mg/dL 8.7-10 .3 Not Available [facility] ([facility]) [address] [place], [address], 03/13/2024 08:24:03 03/12/20 24 03/13/2024 COMP. METAB OLIC PANEL (14) protein, total 7.4 g/dL 6.0-8. 5 Not Available [facility] ([facility]) [address] [place], [address], 03/13/2024 08:24:03 03/12/20 24 03/13/2024 COMP. METAB OLIC PANEL (14) albumin 3.6 g/dL 3.8-4. 8 below low normal Not Available [facility] ([facility]) [address] [place], [address], 03/13/2024 08:24:03 03/12/20 24 03/13/2024 COMP. METAB OLIC PANEL (14) globulin, total 3.8 g/dL 1.5-4. 5 Not Available [facility] ([facility]) [address] [place], [address], 03/13/2024 08:24:03 03/12/20 24 03/13/2024 COMP. METAB OLIC PANEL (14) A/G ratio 0.9 1.2-2. 2 below low normal Not Available [facility] ([facility]) [address] [place], [address], 03/13/2024 08:24:03 03/12/20 24 03/13/2024 COMP. METAB OLIC PANEL (14) bilirubin, total 0.6 mg/dL 0.0-1. 2 Not Available [facility] ([facility]) [address] [place], [address], 03/13/2024 08:24:03 03/12/20 24 03/13/2024 COMP. METAB OLIC PANEL (14) alkaline phosphatase 154 IU/L 44-121 above high normal Not Available [facility] ([facility]) [address] [facility] [place], [address], 03/13/2024 08:24:03 03/12/20 24 03/13/2024 COMP. METAB OLIC PANEL (14) AST (SGOT) 18 IU/L 0-40 Not Available [facility] ([facility]) [address] [facility] [place], [address], 03/13/2024 08:24:03 03/12/20 24 03/13/2024 COMP. METAB OLIC PANEL (14) ALT (SGPT) 10 IU/L 0-32 Not Available [facility] ([facility]) [address] [facility] [place], [address], 03/13/2024 08:24:03 03/12/20 24 03/13/2024 CBC WITH DIFFE RENTI AL/PL ATELE T WBC 14.5 x10e3 /uL 3.4-10 .8 above high normal Not Available [facility] ([facility]) [address] [facility] [place], [address], 03/13/2024 08:24:04 03/12/20 24 03/13/2024 CBC WITH DIFFE RENTI AL/PL ATELE T RBC 5.26 x10e6 /uL 3.77-5 .28 Not Available [facility] ([facility]) [address] [facility] [place], [address], 03/13/2024 08:24:04 03/12/20 24 03/13/2024 CBC WITH DIFFE RENTI AL/PL ATELE T hemoglobin 15.3 g/dL 11.1-1 5.9 Not Available [facility] ([facility]) [address] [facility] [place], [address], 03/13/2024 08:24:04 03/12/20 24 03/13/2024 CBC WITH DIFFE RENTI AL/PL ATELE T hematocrit 46.4 % 34.0-4 6.6 Not Available [facility] ([facility]) [address] [facility], [place], [address], 03/13/2024 08:24:04 03/12/20 24 03/13/2024 CBC WITH DIFFE RENTI AL/PL ATELE T MCV 88 fL 79-97 Not Available [facility] ([facility]) [address] [facility], [place], [address], 03/13/2024 08:24:04 03/12/20 24 03/13/2024 CBC WITH DIFFE RENTI AL/PL ATELE T MCH 29.1 pg 26.6-3 3.0 Not Available [facility] ([facility]) [address] [facility], [place], [address], 03/13/2024 08:24:04 03/12/20 24 03/13/2024 CBC WITH DIFFE RENTI AL/PL ATELE T MCHC 33.0 g/dL 31.5-3 5.7 Not Available [facility] ([facility]) [address] [facility], [place], [address], 03/13/2024 08:24:04 03/12/20 24 03/13/2024 CBC WITH DIFFE RENTI AL/PL ATELE T RDW 12.5 % 11.7-1 5.4 Not Available [facility] ([facility]) [address] [facility], [place], [address], 03/13/2024 08:24:04 03/12/20 24 03/13/2024 CBC WITH DIFFE RENTI AL/PL ATELE T platelets 323 x10e3 /uL 150-45 0 Not Available [facility] ([facility]) [address] [facility], [place], [address], 03/13/2024 08:24:04 03/12/20 24 03/13/2024 CBC WITH DIFFE RENTI AL/PL ATELE T neutrophils 74 % notest ab. Not Available [facility] ([facility]) [address] [facility], [place], [address], 03/13/2024 08:24:04 03/12/20 24 03/13/2024 CBC WITH DIFFE RENTI AL/PL ATELE T lymphs 18 % notest ab. Not Available [facility] ([facility]) [address] [facility], [place], [address], 03/13/2024 08:24:04 03/12/20 24 03/13/2024 CBC WITH DIFFE RENTI AL/PL ATELE T monocytes 6 % notest ab. Not Available [facility] ([facility]) [address] [facility], [place], [address], 03/13/2024 08:24:04 03/12/20 24 03/13/2024 CBC WITH DIFFE RENTI AL/PL ATELE T eos 1 % notest ab. Not Available [facility] ([facility]) [address] [facility], [place], [address], 03/13/2024 08:24:04 03/12/20 24 03/13/2024 CBC WITH DIFFE RENTI AL/PL ATELE T basos 1 % notest ab. Not Available [facility] ([facility]) [address] [facility], [place], [address], 03/13/2024 08:24:04 03/12/20 24 03/13/2024 CBC WITH DIFFE RENTI AL/PL ATELE T neutrophils (absolute) 10.8 x10e3 /uL 1.4-7. 0 above high normal Not Available [facility] ([facility]) [address] [facility], [place], [address], 03/13/2024 08:24:04 03/12/20 24 03/13/2024 CBC WITH DIFFE RENTI AL/PL ATELE T lymphs (absolute) 2.6 x10e3 /uL 0.7-3. 1 Not Available [facility] ([facility]) [address] [facility], [place], [address], 03/13/2024 08:24:04 03/12/20 24 03/13/2024 CBC WITH DIFFE RENTI AL/PL ATELE T monocytes(ab solute) 0.8 x10e3 /uL 0.1-0. 9 Not Available [facility] ([facility]) [address] [facility], [place], [address], 03/13/2024 08:24:04 03/12/20 24 03/13/2024 CBC WITH DIFFE RENTI AL/PL ATELE T eos (absolute) 0.1 x10e3 /uL 0.0-0. 4 Not Available [facility] ([facility]) [address] [facility], [place], [address], 03/13/2024 08:24:04 03/12/20 24 03/13/2024 CBC WITH DIFFE RENTI AL/PL ATELE T baso (absolute) 0.1 x10e3 /uL 0.0-0. 2 Not Available [facility] ([facility]) [address] [facility], [place], [address], 03/13/2024 08:24:04 03/12/20 24 03/13/2024 CBC WITH DIFFE RENTI AL/PL ATELE T immature granulocytes 0 % notest ab. Not Available [facility] ([facility]) [address] [facility], [place], [address], 03/13/2024 08:24:04 03/12/20 24 03/13/2024 CBC WITH DIFFE RENTI AL/PL ATELE T immature grans (abs) 0.0 x10e3 /uL 0.0-0. 1 Not Available [facility] ([facility]) [address] [facility], [place], [address], 03/13/2024 08:24:04 07/28/20 24 03/06/2023 DEXA No observ ation record ed. Not Available 2023 10:53:46 07/29/20 24 05/03/2020 colon oscop y mahin perdue (PROC ) No observ ation record ed. Natasha Temple MD [address] [address], [place], [address], 07/30/2024 12:07:51 12/02/19 25 12/01/2024 imagi ng/di agnos tic resul t No observ ation record ed. [address] [facility] [address], [place], [address], 12/03/2024 13:41:19 12/03/19 25 12/03/2024 imagi ng/di agnos tic resul t No observ ation record ed. [facility] [address] [facility] [address], [place], [address], 12/03/2024 14:31:00 Result Notes None recorded. Problems Name Problem SNOMED Code Status Onset Date Resolution Date Notes Provider Name and Address Organization Details Recorded Time Hyperlipidemia 73318678 Active 2023 Laura Florez MA [facility], [place] - [facility] 4 15:55:05 Osteoporosis 47956843 Active 2023 Natasha Temple MD Attn: Anabela carter,[address] [place], [address], [facility] - [facility] 4 21:53:50 Chronic obstructive pulmonary disease 14737750 Active 2023 Natasha Temple MD Attn: Anabela carter,[address] [place], [address], [facility] - [facility] 4 21:53:50 Chronic pain syndrome 253542029 Active 2023 Natasha Temple MD Attn: Anabela carter,[address] [facility], [place], [address], [facility] - [facility] 4 21:53:50 Problem Notes None recorded. Procedures Surgical History Date Name Laterality Status Provider Name and Address Organization Details Recorded Time Eye Surgery completed Jani Yee MA [facility] 12/20/2023 16:35:18 Joint Replacement completed Jani Yee MA [facility] 12/20/2023 16:35:25 Tonsillectomy completed Jani Yee MA [facility] 12/20/2023 16:35:32 Dilation and Curettage completed Jani Yee MA [facility] 12/20/2023 16:35:38 partial hysterectomy completed Jani Yee MA [facility] 12/20/2023 16:35:51 Imaging Results Imaging Date Name Status LastModified by Organiz ation Details LastModified Time 03/06/2023 DEXA completed [email or web address] Information no t available 07/28/2024 10:53:46 05/03/2020 colon[facility] screening (PROC[facility] Nat[facility] Temple MD [address] [address], [address], 07/30/2024 12:07:51 12/01/2024 imaging/diagnos tic result active [address], [place], [address], 12/03/2024 13:41:19 12/03/2024 imaging/diagnos tic result active [address], [place], [address], 12/03/2024 14:31:00 Procedure Notes None recorded. Medical Equipment None [...] Address Organization Details Last Updated DateTime 4 50606.1 9 g 16 kg/m2 151.13 cm 90 /min 95 % 95 % 136 mm[Hg] 80 mm[Hg] Jani Yee MA [facility] 4 16:40:38 Date Recorded Body height Body mass index (BMI) Body weight Heart rate Oxygen saturation Oxygen saturation in Arterial blood by Pulse oximetry Systolic blood pressure Diastolic blood pressure Provider Name and Address Organization Details Last Updated DateTime 4 151.13 cm 16.2 kg/m2 02160.5 g 95 /min 93 % 93 % 128 mm[Hg] 70 mm[Hg] Selma Thapa MA [facility] 4 15:05:12 Date Recorded Body height Body mass index (BMI) Body weight Heart rate Oxygen saturation Oxygen saturation in Arterial blood by Pulse oximetry Systolic blood pressure Diastolic blood pressure Provider Name and Address Organization Details Last Updated DateTime 4 151.13 cm 16.5 kg/m2 41912.1 7 g 86 /min 95 % 95 % 140 mm[Hg] 90 mm[Hg] Elmira Aguilera MA [facility] 4 14:56:13 Date Recorded Body height Body mass index (BMI) Body weight Heart rate Oxygen saturation Oxygen saturation in Arterial blood by Pulse oximetry Systolic blood pressure Diastolic blood pressure Provider Name and Address Organization Details Last Updated DateTime 4 151.13 cm 16.5 kg/m2 97026.8 9 g 84 /min 96 % 96 % 124 mm[Hg] 68 mm[Hg] Selma Thapa MA [facility] 4 14:53:17 Date Recorded Pain severity - 0-10 verbal numeric rating [Score] - Reported Provider Name and Address Organization Details Last Updated DateTime 07/29/2024 0 Margarita Ramos [facility] 07/29/2024 15:07:18 Date Recorded Body height Body mass index (BMI) Body weight Heart rate Oxygen saturation Oxygen saturation in Arterial blood by Pulse oximetry Systolic blood pressure Diastolic blood pressure Provider Name and Address Organization Details Last Updated DateTime 5 151.13 cm 17.1 kg/m2 34558.9 4 g 82 /min 95 % 95 % 122 mm[Hg] 70 mm[Hg] Jani Yee MA [facility] 5 12:46:49 Social History Question Answer Notes LastModified by Organizat ion Details LastModified Time Tobacco Smoking Status Current Every Day Smoker Jani Yee MA null, [facility] 12/20/2023 16:34:12 Do You Have An Advance [...] 7 Days, How Much Pain Have You Santo? None Information not available 07/29/2024 In General, [...] Past 7 Days, How Often Have You Santo Sleepy In The Daytime? Rarely Information not [...] Anxious, Or Unable To Sleep At Night)? [id number] Information not available 12/20/2023 Do You Use [...] Skin Problems N Anemia N Heart Attack ([place]) N Anxiety Disorder N Diabetes N Muscle, [...] split virus, quadrivalent, preservative 5 completed Margarita Ramos [place], [place] - [facility] 07/28/2024 10:48:59 Pneumococcal conjugate PCV 13 5 completed Margarita [place] [facility] 07/28/2024 10:48:59 Influenza, split virus, trivalent, preservative 5 completed Margar[place] [facility] 07/28/2024 10:48:59 Td (adult), 2 Lf tetanus toxoid, preservative free, adsorbed 5 completed Margarita [place] [facility] 07/28/2024 10:48:59 Pneumococcal conjugate PCV20, polysaccharide STG112 conjugate, adjuvant, PF 4 completed Natasha Temple MD Attn: Accounting[address] [place], [address], [facility] 08/10/2024 11:40:13 Past Encounters Encounter ID Performer Location Encounter Start Date Encounter Closed Date Diagnosis/Indication Diagnosis SNOMED-CT Code Diagnosis ICD10 Code Diagnosis Note [id number] Natasha Temple MD [facility] (Adult Med) [address] [place] [phone] 12/20/2023 16:01:03 12/20/2023 17:13:38 Chronic obstructive pulmonary disease 14782196 J44.9 Osteoporosis 95890621 M8 1.0 Nicotine dependence 5629 4008 F17.200 Chronic pain syndrome 37 6655293 G89.4 [id number] Natasha Temple MD [facility] (Adult Med) [address] [place] [phone] 03/12/2024 14:44:00 03/12/2024 15:56:14 Hyperlipidemia 16881196 E78.5 Long-term drug therapy 193673081 Z79.899 Chronic pain syndrome 37 7276326 G89.4 Chronic ob structive pulmonary disease 69405822 J44.9 Osteoporosis 67149464 M8 1.0 [id number] MD [facility] (Adult Med) [address] [place] [phone] 07/09/2024 14:28:02 07/09/2024 16:09:10 Underweight 568849485 R63.6 Chronic ob structive pulmonary disease 99344551 J44.9 Hyperlipidemia 81617143 E78.5 Osteoporosis 63761464 M8 1.0 [id number] MD Conrad Rausch (Adult Med) [address] [place] [phone] 07/29/2024 14:40:03 07/29/2024 15:54:02 Adult health examination 118547953 Z00.00 Health Risk Assessment collected and reviewed Administra tion of pneumococcal vaccine 48974980 Z23 [id number] MD Conrad Rausch (Adult Med) [address] [place] [phone] 11/14/2024 12:18:19 11/14/2024 13:03:13 Chronic obstructive pulmonary disease 68578574 J44.9 Chronic pain syndrome 37 7897763 G89.4 Hyperlipidemia 63079905 E78.5 Osteoporosis 87080213 M8 1.0 Health Concerns Section Related Observation LastModified by Organization Detai ls LastModified Time None Recorded Concern Status LastModified by Organization Details LastModified Time None Recorded Advance Directives Directive N: Payers Encounter Date Sequence Insurance Name Policy Number Policy Mcpherson Covered Member ID Mcpherson Member ID Guarantor Name 12/20/2023 1 [facility] (MEDICARE REPLACEMENT/AD VANTAGE - PPO) [id number] Angela Moses [id number] Angela Moses 12/20/2023 2 [place] Angela Moses [id number] Angela Moses 03/12/2024 1 [facility] (MEDICARE REPLACEMENT/AD VANTAGE - PPO) [id number] Angela Moses [id number] Angela Moses 03/12/2024 2 [place] Angela Moses [id number] Angela Moses 07/09/2024 1 [facility] (MEDICARE REPLACEMENT/AD VANTAGE - PPO) [id number] Angela Moses [id number] Angela Moses 07/09/2024 2 [place] WHEN MED[place]ARE OR MEDICARE REPLACEMENT PRIMARY) Angela Moses [id number] Angela Moses 07/29/2024 1 [facility] (MEDICARE REPLACEMENT/AD VANTAGE - PPO) [id number] Angela Moses [id number] Angela Moses 07/29/2024 2 [place]ARE OR MEDICARE REPLACEMENT PRIMARY) Angela Moses [id number] Angela Moses 11/14/2024 1 [facility] (MEDICARE REPLACEMENT/AD VANTAGE - PPO) [id number] Angela Moses [id number] Angela Moses 11/14/2024 2 [place] ([place]CON[place] WHEN MEDICARE OR MEDICARE REPLACEMENT PRIMARY) Angela Moses [id number] Angela Moses Notes Date Note Type Note [...] Natasha Temple MD Attn: Accounting[address] [facility] [facility], [place], [address], [facility] 12/20/2023 21:44:10 03/12/2024 text/html COPD continues t o smoke no shortness of breath pain controlled on current meds osteoporosis no new bone pain Natasha Temple MD Attn: Accounting[address] [facility], [place], [address], [facility] 03/12/2024 21:58:59 07/09/2024 text/html COPD denies coug h wheezing or shortness on breath. Osteoporosis taking alendronate with nights with no side effects. Dyslipidemia taking her atorvastatin trying to follow a low-fat diet. Natasha Temple MD Attn: Accounting[address] [facility] [facility], [place], [address], [facility] 07/20/2024 20:41:27 07/29/2024 text/html MAW 2Reported bypatient.Diet [...] home Natasha Temple MD Attn: Accounting[address] [place], [address], [facility] 08/10/2024 11:40:57 11/14/2024 text/html COPD continues t o smoke uses her inhaler no shortness of breath. Taking atorvastatin tries to watch her diet. IBS has been stable osteoarthritis stable she continues to see pain management as well osteoporosis taking takes the alendronate without any side effects Natasha Temple MD Attn: Accounting[address] [place], [address], [facility] 11/15/2024 15:47:33 OBGyn Episode No OBEpisode recorded.
--- OUTSIDE RECORDS SUMMARY | 2024-12-03 14:14 | XMS_ITS | Clinical Summary ---
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
--- OUTSIDE RECORDS SUMMARY | 2024-12-03 14:14 | XMS_ITS | Referral Summary ---
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
--- OUTSIDE RECORDS SUMMARY | 2024-12-03 14:14 | XMS_ITS | CONTINUITY OF CARE DOCUMENT ---
Author Name beatriz henderson Address Unknown Organization [facility] Address [address] [place] [address] [address] [place] [address] Phone [phone] Care Team Providers Care Varnish Cooker Name Role Phone LUPE JAQUEZ MD, LORE Unavailable NATASHA BRYANT MD Unavailable INSURANCE PROVIDERS Payer name Policy type / Coverage type [place] [employer] party ID [employer]ILY [employer] Medicaid 1 [id number] [place] MEDICARE Medicare [id number]
--- OUTSIDE RECORDS SUMMARY | 2024-12-03 14:15 | XMS_ITS | Data Portability ---
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 Role Phone NATASHA TEMPLE Primary Care Provider [phone] NATASHA TEMPEL Referring Provider Assessment Encounter Date Assessment Date Assessment LastModified by Organization Details LastModified Time 05/28/2023 05/28/2023 Assessment: Nicotine smoke: 1 ppd 1972-present = 50 pack years Mod COPD Pulmonary nodules Plan: The following were reviewed and explained to the patient: Chest CT 10/05/22 bilateral pulmonary nodules, largest 11 mm RML nodule Chest CT 04/21/23 bilateral pulmonary nodules, largest 6 mm RUL nodule PET/CT 10/31/22 largest 6 mm RML nodule with minimal FDG activity Lab data 10/17/22 PFT 10/26/22 FEV1 1.06 (54%) Nicotine cessation counseling provided. [place] for quitting nicotine include getting ready, getting support and encouragement, learning new skills and behaviors and being prepared to handle slips. Tips for dealing with cravings provided. Prevention of subsequent illnesses from nicotine addiction discussed. Comorbidities include but are not limited to hypertension, cerebrovascular disease, coronary heart disease, congestive heart failure, hyperlipidemia, COPD/asthma, peptic ulcer disease, esophagitis/gastri tis, and osteoporosis. Therapy options offered include: Quitting by total abstinence Receiving nicotine replacement therapy Undergoing hypnosis Filling a bupropion or varenicline prescription Enrolling in Quit For Life program Registering at www.quitline[employer] Making a call to 1-153-FFSY-NOW ( ). A strong, clear, personalized message was given to the patient to quit smoking. The patient was urged to set a quit date. We discussed patient's barriers to quitting and I will be of assistance when patient is ready to quit. I encouraged patient to inform friends and family of plans to quit with a request for support. I encouraged the patient to remove all cigarettes from the environment. We reviewed any previous quit attempts and lessons learned from them. I encouraged total abstinence from smoking and advised the patient that drinking alcohol and/or associating with other smokers are associated with failure or relapse. Patient can enroll in [facility]'s smoking cessation class through Sophia Cho RN at . Enrollment is free and classes are held every sunday of the month from 1:30 pm to 2:30 pm at the conference room next to the cafeteria on the ground floor. Differential diagnoses for pulmonary nodule: 1. malignant tumor 2. benign tumor 3. inflammatory processes 4. infectious process (viral, atypical bacterial, fungal, atypical mycobacterial) The Fleischner Society pulmonary nodule recommendations below pertain to the follow-up and management of indeterminate pulmonary nodules detected incidentally on CT and are published by the Fleischner Society. The guideline does not apply to lung cancer screening, patients younger than 35 years, or patients with a history of primary cancer or immunosuppression. These recommendations reflect the 2017 revision 4, which supersedes prior versions published in 2005 and 2013. Multiple solid nodules <6 mm (<100 mm3) *low-risk patients: no routine follow-up required *high-risk patients: optional CT at 12 months Multiple solid nodules >6 mm (>100 mm3) *low-risk patients: CT at 3-6 months, then consider CT at 18-24 months *high-risk patients: CT at 3-6 months, then CT at 18-24 months Complete PFT and chest CT one week before return. Pulmonary rehabilitation may be included in the management of patients with chronic obstructive pulmonary disease (COPD). For respiratory diseases different from COPD, there have been no formal statements regarding patient selection. Pulmonary rehabilitation consists of assessment, exercise, education, and emotional support. It covers the goals of rehabilitation, the techniques of breathing, the necessity of nicotine cessation, the strategies to deal with panic attacks, the rationale of pulmonary medications, and the importance of nutrition. As the patient learns to live with her pulmonary condition through exercise and education, the patient will regain confidence with her abilities and feel improvement in her overall quality of life. The patient's FEV1 is 54%. The patient is enrolled in pulmonary rehabilitation but she declined. She has to take care of her demented . General concepts of pulmonary rehabilitation were explained. Continue albuterol HFA as needed. . Continue Anoro Ellipta 62.5/25 mcg 1 inhalation daily. The patient does not know how to accurately administer the inhalers. Today, the patient was shown how to take these medications. The proper technique for delivering these medications was instructed. The patient expressed a clear understanding and demonstrated back how to use these medications. Without the proper technique, the patient will not reap the benefits of these medications as the contents will not reach the lower airways as intended to be. Adherence to therapy is advocated. Nonadherence may lead to treatment failure, further progression of the condition, and other complications. Hospitals admissions are often the result of individuals not taking prescription medications accurately. Alternatively, greater adherence to medication regimens have shown to lower rates of hospitalization and decrease total medical costs in patients with chronic medical conditions. Advocated influenza vaccination annually and pneumonia vaccination in 2024. Encouraged patient to adjust caloric intake to maintain/achieve ideal body weight, emphasizing on fruits, vegetables, whole grains, and fat-free or low-fat products. These include lean meats, poultry, fish, beans, eggs, and nuts and foods that are low in saturated fats, trans-fats, cholesterol, salt (sodium), and glycemic index. Stressed the importance of regular exercise up to the patient's capacity limits. In this case, we recommend 20 min daily walking, 2 days a week of resistance training. Patient to monitor BP daily and bring records to PCP for further management. Follow-up: 6 months, November 2023 Not available 05/28/2023 12:00:08 06/27/2023 06/27/2023 For diagnosis an d medications have been discussed in detail medicines renewed where needed immunizations and keeping up-to-date on those have been discussed as well follow-up in 4 months [email or web address] Not available 10/04/2023 22:45:48 12/31/2023 12/31/2023 Assessment: Nicotine smoke: 1 ppd 1972-present = 51 pack years Mod COPD Pulmonary nodules Atelectasis Plan: The following were reviewed and explained to the patient: Chest CT 10/05/22 bilateral pulmonary nodules, largest 11 mm RML nodule Chest CT 04/21/23 bilateral pulmonary nodules, largest 6 mm RUL nodule Chest CT 10/09/23 atelectasis, unchanged 4 mm lingular and RUL nodules PET/CT 10/31/22 largest 6 mm RML nodule with minimal FDG activity Lab data 10/17/22 PFT 10/26/22 FEV1 1.06 L (54%) PFT 10/09/23 FEV1 1.17 L (61%) Nicotine cessation counseling provided. [place] for quitting nicotine include getting ready, getting support and encouragement, learning new skills and behaviors and being prepared to handle slips. Tips for dealing with cravings provided. Prevention of subsequent illnesses from nicotine addiction discussed. Comorbidities include but are not limited to hypertension, cerebrovascular disease, coronary heart disease, congestive heart failure, hyperlipidemia, COPD/asthma, peptic ulcer disease, esophagitis/gastri tis, and osteoporosis. Therapy options offered include: Quitting by total abstinence Receiving nicotine replacement therapy Undergoing hypnosis Filling a bupropion or varenicline prescription Enrolling in Quit For Life program Registering at www.[employer] Making a call to 3-430-ZLZU-NOW ( ). A strong, clear, personalized message was given to the patient to quit smoking. The patient was urged to set a quit date. We discussed patient's barriers to quitting and I will be of assistance when patient is ready to quit. I encouraged patient to inform friends and family of plans to quit with a request for support. I encouraged the patient to remove all cigarettes from the environment. We reviewed any previous quit attempts and lessons learned from them. I encouraged total abstinence from smoking and advised the patient that drinking alcohol and/or associating with other smokers are associated with failure or relapse. Patient can enroll in [facility]'s smoking cessation class through Sophia Cho RN at . Enrollment is free and classes are held every sunday of the month from 1:30 pm to 2:30 pm at the conference room next to the cafeteria on the ground floor. Differential diagnoses for pulmonary nodule: 1. malignant tumor 2. benign tumor 3. inflammatory processes 4. infectious process (viral, atypical bacterial, fungal, atypical mycobacterial) The Fleischner Society pulmonary nodule recommendations below pertain to the follow-up and management of indeterminate pulmonary nodules detected incidentally on CT and are published by the Fleischner Society. The guideline does not apply to lung cancer screening, patients younger than 35 years, or patients with a history of primary cancer or immunosuppression. These recommendations reflect the 2017 revision 4, which supersedes prior versions published in 2005 and 2013. Multiple solid nodules <6 mm (<100 mm3) *low-risk patients: no routine follow-up required *high-risk patients: optional CT at 12 months Multiple solid nodules >6 mm (>100 mm3) *low-risk patients: CT at 3-6 months, then consider CT at 18-24 months *high-risk patients: CT at 3-6 months, then CT at 18-24 months Complete PFT and chest CT one week before return. Pulmonary rehabilitation may be included in the management of patients with chronic obstructive pulmonary disease (COPD). For respiratory diseases different from COPD, there have been no formal statements regarding patient selection. Pulmonary rehabilitation consists of assessment, exercise, education, and emotional support. It covers the goals of rehabilitation, the techniques of breathing, the necessity of nicotine cessation, the strategies to deal with panic attacks, the rationale of pulmonary medications, and the importance of nutrition. As the patient learns to live with her pulmonary condition through exercise and education, the patient will regain confidence with her abilities and feel improvement in her overall quality of life. The patient's FEV1 is 54%. The patient is enrolled in pulmonary rehabilitation but she declined. She has to take care of her demented . General concepts of pulmonary rehabilitation were explained. Continue albuterol HFA as needed. . Continue Anoro Ellipta 62.5/25 mcg 1 inhalation daily. The patient does not know how to accurately administer the inhalers. Today, the patient was shown how to take these medications. The proper technique for delivering these medications was instructed. The patient expressed a clear understanding and demonstrated back how to use these medications. Without the proper technique, the patient will not reap the benefits of these medications as the contents will not reach the lower airways as intended to be. Adherence to therapy is advocated. Nonadherence may lead to treatment failure, further progression of the condition, and other complications. Hospitals admissions are often the result of individuals not taking prescription medications accurately. Alternatively, greater adherence to medication regimens have shown to lower rates of hospitalization and decrease total medical costs in patients with chronic medical conditions. Advocated influenza vaccination annually and pneumonia vaccination in 2024. Encouraged patient to adjust caloric intake to maintain/achieve ideal body weight, emphasizing on fruits, vegetables, whole grains, and fat-free or low-fat products. These include lean meats, poultry, fish, beans, eggs, and nuts and foods that are low in saturated fats, trans-fats, cholesterol, salt (sodium), and glycemic index. Stressed the importance of regular exercise up to the patient's capacity limits. In this case, we recommend 20 min daily walking, 2 days a week of resistance training. Patient to monitor BP daily and bring records to PCP for further management. Follow-up: 1 year, December 2024 Not available 12/31/2023 15:35:15 Plan of Treatment Reminders Order Date Submit Date Provider Last Modified By Organization Details Last Modified Time Details Appointments Any 2024 01:00P M Mani Velez MD Not available Not available Not available Establis hed Patient 15 2024 11:45A M Sylwia Proctor MD Not available Not available Not available Lab None recorded . Referral None recorded . Procedures None recorded . Surgeries None recorded . Imaging CT, chest, w/o contrast [address] ([facility]), [address] [place], [address], 12/01/2024 12:03:13 CT, chest, w/o contrast 2022 024 [facility] ([facility]), [address] [place], [address], 11/20/2023 11:25:41 Medication Orders dicyclom ine 10 mg capsule 2023 024 [id number], [address] [place], [place], [id number], 08/06/2024 13:04:41 albutero l sulfate HFA 90 mcg/actu ation aerosol inhaler 2023 024 [id number] [place], [place], [id number], 12/31/2023 15:44:57 Anoro Ellipta 62.5 mcg-25 mcg/actu ation powder for inhalati on 2023 024 [facility] #[id number], [address] [place], [place], [id number], 12/31/2023 15:36:32 dicyclom ine 10 mg capsule 2022 023 [facility] #[id number], [address] [place], [place], [id number], 07/25/2023 12:04:57 alendron ate 70 mg tablet 2022 023 [email or web address] [facility] [employer] [facility] #[id number], [address] [place], [place], [id number], 06/28/2023 13:03:41 albutero l sulfate HFA 90 mcg/actu ation aerosol inhaler 2022 023 [facility] #[id number], [address] [place], [place], [id number], 05/28/2023 11:40:48 Anoro Ellipta 62.5 mcg-25 mcg/actu ation powder for inhalati on 2022 023 [facility] [employer] [facility] #[id number], [address] [place], [place], [id number], 05/28/2023 11:40:47 Patient TargetsNo targets recorded. Patient Instructions Encounter Date Encounter Id Patient Instructions Last Modified By Organization Details Last Modified Time 05/28/2023 [id number] complete PFT w/ post bronchodilator spirometry* [email or web address] Not available 11/21/2023 13:41:40 07/25/2023 [id number] PT WITH IBS-D . PT DOING WELL. RECOMMEND TO CONTINUE DICYCLOMINE 10 MG BID NEEDED . [email or web address] Not available 07/25/2023 12:05:43 12/31/2023 [id number] complete PFT w/ post bronchodilator spirometry* [email or web address] Not available 11/24/2024 16:12:32 08/06/2024 [id number] PT WITH IBS-D. DOING WELL WITH DICYCLOMINE 10 MG 2X DAILY . CONTINUE SAME . F/U IN 1 YR [email or web address] Not available 08/06/2024 13:05:11 Reason for Referral None Reported. Results Created Date Observation Date Name Description Value Unit Range Abnormal Flag Note LastModifiedBy Organization Detail LastModifiedTime 10/09/19 24 10/09/2023 CT, chest , w/o contr ast No observ ation record ed. [email or web address] [facility] [address] [place], [address], 10/09/2023 16:24:55 10/10/19 24 10/09/2023 compl ete PFT w/ post [facility] hodil ator ryan metry * No observ ation record ed. BAR[facility] Not Available 2023 14:11:27 Result Notes None recorded. Problems Name Problem SNOMED Code Status Onset Date Resolution Date Notes Provider Name and Address Organization Details Recorded Time Chronic obstructiv e pulmonary disease 84756670 Active 2016 Not Available [facility] 4 06:23:43 Irritable bowel syndrome with diarrhea 526434012 Active Not Available [facility] 4 06:23:43 Localized, primary osteoarthr itis of the pelvic region and thigh 162792002 Active Not Available [facility] 4 06:23:43 Partial thickness rotator cuff tear 908060340 Active Not Available [facility] 4 06:23:43 Vitamin D deficiency 74061020 Active Not Available [facility] 4 06:23:43 Shoulder pain 20705067 Completed Not Available [facility] 3 01:08:26 Hyperlipid emia 89469214 Active Not Available [facility] 4 06:23:43 Diarrhea 72793176 Completed Not Available [facility] 3 01:08:26 Osteoporos is 68660877 Active Not Available [facility] 4 06:23:43 Polyp of colon 89202668 Active Not Available [facility] 4 06:23:43 Smoker 71826840 Active 2022 Not Available [facility] 4 06:23:43 Multiple nodules of lung 936343159 Active 2022 Not Available [facility] 4 06:23:43 Moderate chronic obstructiv e pulmonary disease 518583647 Active 2022 Not Available [facility] 4 06:23:43 Notes:Medical History: L>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 Please review this document and add these problems to the patient's chart manually as needed. Problem Notes None recorded. Procedures Surgical History Date Name Laterality Status Provider Name and Address Organization Details Recorded Time 02/06/20 23 Medicare Wellness CPT Code, subsequent completed Margarita Ramos RN [facility] 02/05/2023 15:45:43 02/06/20 23 Advanced Care Planning completed Margarita Ramos RN [facility] 02/05/2023 15:47:47 05/19/20 Date of Last Colonoscopy completed Not Available [facility] 12/06/2022 00:54:17 05/15/20 17 Most Recent Bone Density completed Not Available [facility] 12/06/2022 00:54:17 07/14/20 15 partial claviculectomy completed Not Available [facility] 12/06/2022 00:54:26 07/14/20 15 repair of shoulder completed Not Available [facility] 12/06/2022 00:54:26 03/25/20 15 colonoscopy and extirpation of lesion of colon completed Not Available [facility] 12/06/2022 00:54:26 procedure on urinary bladder completed Not Available [facility] 12/06/2022 00:54:26 Partial hysterectomy completed Not Available [facility] 12/06/2022 00:54:26 Orthopedic Surgery completed Not Available [facility] 12/06/2022 00:54:26 Imaging Results Imaging Date Name Status LastModified by Organization Details LastModified Time 10/09/2023 CT, chest, w/o contrast completed [address] [place], [address], 10/09/2023 16:24:55 10/09/2023 complete PFT w/ post bronchodilator spirometry* completed [facility] Information not available 10/10/2023 14:11:27 Procedure Notes None recorded. Medical Equipment None Reported. Allergies No known drug allergies Medications Name Sig Start Date Stop Date Status Note LastModified by Organization Details LastModified Time cyclobenz aprine 10 mg tablet TAKE 1 TABLET PO EVERY 8 HOURS active Not Available Not Available No t Available atorvasta tin 40 mg tablet TAKE 1 TABLET BY MOUTH EVERY DAY active Not Available Not Available No t Available clotrimaz ole 10 mg guerita 11/08 completed Not Available Not Available Not Available prednison e 10 mg tablet 01/18 completed Not Available Not Available Not Available atorvasta tin 20 mg tablet TAKE 1 TABLET BY MOUTH EVERY DAY 07/09 completed Not Available Not Available Not Available hydrocodo ne 5 mg-acetam inophen 325 mg tablet TAKE 1 TABLET BY MOUTH THREE TIMES DAILY NEEDED FOR 30 DAYS 04/14 completed Not Available Not Available Not Available meloxicam 15 mg tablet TAKE 1 TABLET BY MOUTH DAILY NEEDED active Not Available Not Available No t Available alendrona te 70 mg tablet TAKE 1 TABLET BY MOUTH EVERY WEEK active Not Available Not Available No t Available alclometa sone 0.05 % topical cream 07/16 completed Not Available Not Available Not Available acetamino phen 300 mg-codein e 30 mg tablet Take 1 tablet every 4-6 hours by oral route as needed. active Not Available Not Available No t Available tramadol 50 mg tablet TK 1 TO 2 TS PO Q 4 TO 6 H PRN P 01/18 completed Not Available Not Available Not Available meloxicam 7.5 mg tablet TK 1 T PO QD active Not Available Not Available No t Available oxycodone -acetamin ophen 5 mg-325 mg tablet 11/06 completed Not Available Not Available Not Available hydrocodo ne 7.5 mg-acetam inophen 325 mg tablet ever4-6 hours as needed 11/08 completed Not Available Not Available Not Available Qvar 40 mcg/actua tion Metered Aerosol oral inhaler Inhale 1 puff twice a day by inhalati on route. 05/23 completed changed to Pulmoico rt Not Available Not Available Not Available gabapenti n 300 mg capsule 03/05 completed Not Available Not Available Not Available morphine ER 15 mg tablet,ex tended release TAKE 1 TABLET BY MOUTH EVERY 12 HOURS active Not Available Not Available No t Available diclofena c sodium 50 mg tablet,de layed release 03/05 completed Not Available Not Available Not Available gabapenti n 100 mg capsule 11/06 completed Not Available Not Available Not Available ergocalci ferol (vitamin D2) 1,250 mcg (50,000 unit) capsule TAKE 1 CAPSULE BY MOUTH EVERY WEEK active Not Available Not Available No t Available methylpre dnisolone 4 mg tablets in a dose pack 01/18 completed Not Available Not Available Not Available albuterol sulfate HFA 90 mcg/actua tion aerosol inhaler INHALE 1 PUFF BY MOUTH EVERY 4 HOURS NEEDED active Not Available Not Available No t Available dicyclomi ne 10 mg capsule TAKE 1 CAPSULE BY MOUTH TWICE DAILY 2023 active Not Available Not Available Not Avai lable Tylenol Extra Strength 500 mg tablet Take 2 tablets every 8 hours by oral route. active Not Available Not Available No t Available cyclobenz aprine 5 mg tablet 01/18 completed Not Available Not Available Not Available Flovent HFA 110 mcg/actua tion aerosol inhaler INHALE 2 PUFFS BY MOUTH TWICE DAILY 12/30 completed Not Available Not Available Not Available Pulmicort Flexhaler 180 mcg/actua tion breath activated Inhale 2 puffs twice a day by inhalati on route. 08/15 completed has flovent inhaler with her Not Available Not Available Not Available Calcium 600 + D(3) 600 mg-10 mcg (400 unit) tablet Take 1 tablet twice a day by oral route. 06/27 completed Not Available Not Available Not Available Suprep Bowel Prep Kit 17.5 gram-3.13 gram-1.6 gram oral solution MIX AND DRINK UTD active Not Available Not Available No t Available Anoro Ellipta 62.5 mcg-25 mcg/actua tion powder for inhalatio n INHALE 1 PUFF BY MOUTH EVERY DAY active Not Available Not Available No t Available naloxone 4 mg/actuat ion nasal spray CALL 911. SPR CONTENTS OF ONE SPRAYER (0.1ML) INTO ONE NOSTRIL. REPEAT IN 2-3 MIN IF SYMPTOMS OF OPIOID EMERGENC Y PERSIST, ALTERNAT E NOSTRILS active Not Available Not Available No t Available Vitals Date Recorded Body height Body mass index (BMI) Body weight Body temperature Heart rate Systolic blood pressure Diastolic blood pressure Provider Name and Address Organization Details Last Updated DateTime 3 154.94 cm 17.4 kg/m2 06672.5 g 98.4 [degF] 81 /min 128 mm[Hg] 82 mm[Hg] Karen Thomas MA [place] [facility] [employer] 3 11:46:06 Date Recorded Oxygen saturation Oxygen saturation in Arterial blood by Pulse oximetry Heart rate Respiratory rate Provider Name and Address Organization Details Last Updated DateTime 05/28/2023 95 % 95 % 81 /min 15 /min Mani Velez MD [address] [place] [address], [address], [place] [facility] [employer] 3 12:00:32 Date Recorded Body height Body mass index (BMI) Body weight Body temperature Heart rate Systolic blood pressure Diastolic blood pressure Provider Name and Address Organization Details Last Updated DateTime 3 154.94 cm 17.4 kg/m2 53040.5 g 98.6 [degF] 74 /min 138 mm[Hg] 84 mm[Hg] CARLA Hayes [place] [facility] [employer] [facility] 3 15:01:11 Date Recorded Body height Body mass index (BMI) Body weight Heart rate Oxygen saturation Oxygen saturation in Arterial blood by Pulse oximetry Systolic blood pressure Diastolic blood pressure Provider Name and Address Organization Details Last Updated DateTime 3 154.94 cm 17.4 kg/m2 20268.5 g 76 /min 96 % 96 % 136 mm[Hg] 82 mm[Hg] CARLA Richards [facility] [employer] [facility] 3 11:46:08 Date Recorded Body height Body mass index (BMI) Body weight Body temperature Heart rate Oxygen saturation Oxygen saturation in Arterial blood by Pulse oximetry Systolic blood pressure Diastolic blood pressure Provider Name and Address Organization Details Last Updated DateTime 149.86 cm 17.4 kg/m2 06129.6 6 g 98.2 [degF] 90 /min 95 % 95 % 134 mm[Hg] 76 mm[Hg] Tamiko Elizabeth MA [employer] 14:58:18 Date Recorded Heart rate Respiratory rate Provider N fernando and Address Organization Details Last Updated DateTime 12/31/2023 90 /min 14 /min Mani Velez MD [address] [facility], [facility] [address], [place], [address], [place] [facility] [employer] 12/31/2023 15:41:32 Date Recorded Body height Body mass index (BMI) Body weight Provider Name and Address Organization Details Last Updated DateTime 08/06/2024 149.86 cm 16.8 kg/m2 08526.17 g CARLA Richards [place] [facility] [employer] 08/06/2024 12:30:58 Social History Question Answer Notes LastModified by Organizat ion Details LastModified Time Tobacco Smoking Status Current Every Day Smoker Not Available [facility] 12/06/2022 00:50:47 Do You Have An Advance Directive? No MIGRATION.80349 [id number] Information not available 12/06/2022 What Is Your Level Of Alcohol Consumption? None MIGRATION.65599 69348 Information not available 12/06/2022 Are You Blind Or Do You Have Difficulty Seeing? No MIGRATION.57708 45826 Information not available 12/06/2022 What Is Your Level Of Caffeine Consumption? Heavy MIGRATION.56820 53799 Information not available 12/06/2022 How Much Tobacco Do You Chew? None MIGRATION.47098 28043 Information not available 12/06/2022 In The 14 Days Before Symptom Onset, Have You Had Close Contact With A Laboratory-confi rmed COVID-19 While That Case Was Ill? No MIGRATION.28297 61766 Information not available 12/06/2022 In The 14 Days Before Symptom Onset, Have You Had Close Contact With A Person Who Is Under Investigation For COVID-19 While That Person Was Ill? No MIGRATION.11829 07782 Information not available 12/06/2022 Are You Deaf Or Do You Have Serious Difficulty Hearing? No MIGRATION.36907 10114 Information not available 12/06/2022 What Type Of Diet Are You Following? REGULAR MIGRATION.77987 02773 Information not available 12/06/2022 Which Illicit Or Recreational Drugs Have You Used? None MIGRATION.25016 36435 Information not available 12/06/2022 Do You Or Have You Ever Used E-cigarettes Or Vape? Former User Of Electronic Cigarettes MIGRATION.84666 33574 Information not available 12/06/2022 What Is The Highest Grade Or Level Of School You Have Completed Or The Highest Degree You Have Received? [id number] MIGRATION.93127 78131 Information not available 12/06/2022 Do You Have An Electrostatic Air Filter? No MIGRATION.16830 52310 Information not available 12/06/2022 What Is Your Occupation? Retired MIGRATION.61455 37967 Information not available 12/06/2022 Have There Been Any Changes To Your Family Or Social Situation? No MIGRATION.33982 12356 Information not available 12/06/2022 What Is The Fluoride Status Of Your Home? Unknown MIGRATION.22653 70161 Information not available 12/06/2022 Are There Any Guns Present In Your Home? No MIGRATION.27952 32843 Information not available 12/06/2022 Do You Have A Humidifier? No MIGRATION.87075 26415 Information not available 12/06/2022 Do You Use Insect Repellent Routinely? No MIGRATION.78120 80763 Information not available 12/06/2022 Where Do You Live? [place]House MIGRATION.35586 82617 Information not available 12/06/2022 Presence Of Domestic Violence No Information not available 02/05/2023 Guns Present In The Home? No Information not available 02/05/2023 Are You Able To Care For Yourself? Yes Information not available 02/05/2023 Are You Blind Or Do Yo Have Difficulty Seeing? No Information not available 02/05/2023 Are You Deaf Or Do You Have Serious Difficulty Hearing? No Information not available 02/05/2023 General Stress Level? Moderate Information not available 02/05/2023 Live Alone Of With Others? With Others Information not available 02/05/2023 Do You Have A Medical Power Of Clinical Pharmacy Coordinator? No MIGRATION.65687 68817 Information not available 12/06/2022 Do You Have Moisture Problems In Your Home? No MIGRATION.99398 64456 Information not available 12/06/2022 What Was The Date Of Your Most Recent Tobacco Screening? 12/31/2023 Information not available 12/31/2023 Do You Have Any Pets? Yes MIGRATION.94800 98643 Information not available 12/06/2022 What Is Your Relationship Status? MIGRATION.99074 77065 Information not available 12/06/2022 Do You Use Your Seat Belt Or Car Seat Routinely? Yes MIGRATION.20080 51182 Information not available 12/06/2022 Do You Have Smoke And Carbon Monoxide Detectors In Your Home? Yes MIGRATION.79016 78488 Information not available 12/06/2022 At What Age Did You Start Smoking Tobacco? 17 MIGRATION.37281 38098 Information not available 12/06/2022 Are You Passively Exposed To Smoke? Yes MIGRATION.66278 65303 Information not available 12/06/2022 Do You Or Have You Ever Used Smokeless Tobacco? Never Used Smokeless Tobacco MIGRATION.41472 84738 Information not available 12/06/2022 Are There Any Smokers In Your House? Yes MIGRATION.64095 21636 Information not available 12/06/2022 How Much Tobacco Do You Smoke? 0.5 PPD Information not available 12/31/2023 What Types Of Sporting Activities Do You Participate In? None MIGRATION.52512 60885 Information not available 12/06/2022 Do You Feel Stressed (tense, Restless, Nervous, Or Anxious, Or Unable To Sleep At Night)? [id number] MIGRATION.47481 10566 Information not available 12/06/2022 Do You Use Any Illicit Or Recreational Drugs? No MIGRATION.67797 18069 Information not available 12/06/2022 Do You Use Sunscreen Routinely? No MIGRATION.26616 35475 Information not available 12/06/2022 How Many Years Have You Smoked Tobacco? 55 [id number] Information not available 02/05/2023 Have You Recently Traveled Abroad? No MIGRATION.38264 99872 Information not available 12/06/2022 Do You Have Any Dietary Restrictions? No MIGRATION.45074 02456 Information not available 12/06/2022 Do You Or Have You Ever Used Any Other Forms Of Tobacco Or Nicotine? Yes MIGRATION.16258 33383 Information not available 12/06/2022 Sex: Female Functional Status Question Answer Note LastModified by Organizat ion Details LastModified Time Do you have difficulty walking or climbing stairs? No MIGRATION.2859130 026 Information not available 12/06/2022 Do you have transportation difficulties? No MIGRATION.3367061 026 Information not available 12/06/2022 Are you able to walk? YESWOREST MIGRATION.3812272 026 Information not available 12/06/2022 Do you have difficulty doing errands alone? No MIGRATION.5113397 026 Information not available 12/06/2022 Are you able to care for yourself? Yes MIGRATION.0506049 026 Information not available 12/06/2022 Do you have difficulty dressing or bathing? No MIGRATION.3570563 026 Information not available 12/06/2022 What is your exercise level? None Information not available 02/05/2023 Mental Status Question Answer Note LastModified by Organizat ion Details LastModified Time Do you have difficulty concentrating, remembering or making decisions? No MIGRATION.216312771 6 Information not available 12/06/2022 Family History Relationship Description Onset Age of this Age Resolved Age Notes LastModified by Organization Details LastModified Time Mother Heart disease MIGRATION.529 [id number] Not available 12/06/2022 00:54:31 Mother Pulmonary emphysema MIGRATION.983 [id number] Not available 12/06/2022 00:54:31 Sister Heart disease MIGRATION.083 [id number] Not available 12/06/2022 00:54:31 Sister Diabetes mellitus MIGRATION.038 [id number] Not available 12/06/2022 00:54:31 Father Malignant tumor of prostate MIGRATION.474 [id number] Not available 12/06/2022 00:54:32 Brother Myocardial infarction MIGRATION.183 4755043 Not available 12/06/2022 00:54:32 Medical History Condition Response HAVE YOU BEEN HOSPITALIZED OR SEEN IN [facility] IN THE PAST YEAR ? N Gynecological History Statement/Question Response Menses Monthly N Abnormal Pap N Date of Last Pap Date of Last Mammogram 03/04/2015 Date of Last Colonoscopy 05/19/2020 Most Recent Bone Density 05/15/2017 Obstetrics History GPAL:G 0 P 0 0 0 0 Immunizations Vaccine Type Date Status Note Provider Nam e and Address Organization Details Recorded Time Influenza, split virus, trivalent, preservative 5 completed Not Available [facility] 10/11/2023 06:23:43 tetanus toxoid, adsorbed 5 completed Not Available [facility] 10/11/2023 06:23:43 Influenza, split virus, quadrivalent, preservative 5 completed Not Available [facility] 10/11/2023 06:23:43 Td (adult), 2 Lf tetanus toxoid, preservative free, adsorbed 5 completed Not Available [facility] 10/11/2023 06:23:43 Pneumococcal conjugate PCV 13 5 completed Not Available [facility] 10/11/2023 06:23:43 Past Encounters Encounter ID Performer Location Encounter Start Date Encounter Closed Date Diagnosis/Indication Diagnosis SNOMED-CT Code Diagnosis ICD10 Code Diagnosis Note [id number] [facility] [address] [address] 12/06/2020 00:00:00 12/25/2020 12:44:04 [id number] [facility] [address] [address] 04/18/2021 00:00:00 05/01/2021 15:33:25 [id number] _ATHENA_M IGRATION_ DEFAULT_1 _1 , 07/27/2021 00:00:00 07/27/2021 12:47:53 [id number] [facility] [address] [address] 08/15/2021 00:00:00 09/12/2021 22:08:39 [id number] [facility] [address] [address] 12/23/2021 00:00:00 12/23/2021 23:15:53 [id number] [facility] [address] [address] 04/14/2022 00:00:00 04/14/2022 18:22:44 [id number] _ATHENA_M IGRATION_ DEFAULT_1 _1 , 07/26/2022 00:00:00 07/26/2022 12:27:20 [id number] [facility] [address] [address] 09/22/2022 00:00:00 09/23/2022 15:13:09 [id number] [facility] [address] [address] 10/17/2022 00:00:00 10/17/2022 15:59:43 [id number] [facility] [address] [address] 11/21/2022 00:00:00 11/21/2022 15:58:34 [id number] Natasha Temple MD [facility] [address] [address] 02/05/2023 15:02:17 02/05/2023 16:22:13 Adult health examination 359106976 Z00.00 Screening for disorder 011633142 Z13.9 Chronic ob structive pulmonary disease 78589833 J44.9 Hyperlipidemia 59419401 E78.5 Irritable bowel syndrome with diarrhea 786882424 K58.0 [id number] Mani Velez MD [facility] [address] 02/19/2023 15:27:33 02/20/2023 08:28:05 Smoker 24329120 F17.218 F17.219 Z87.891 Multiple n odules of lung 158085318 R91.8 Moderate c hronic obstructive pulmonary disease 852626298 J44.9 [id number] Mani Velez MD [facility] [address] 05/28/2023 11:23:59 05/29/2023 07:55:28 Smoker 52072136 F17.218 F17.219 Z87.891 Multiple n odules of lung 385126564 R91.8 Moderate c hronic obstructive pulmonary disease 935529316 J44.9 [id number] Natasha Temple MD [facility] Internal Med [facility] [address] [place] [address], [address] [address] 06/27/2023 14:36:39 06/27/2023 15:43:36 Osteoporosis 02856240 M81.0 Hyperlipidemia 07141320 E78.5 Irritable bowel syndrome with diarrhea 251744346 K58.0 Chronic ob structive pulmonary disease 00745917 J44.9 [id number] Sylwia Proctor MD [facility] General Surgery [address] [place] [address] 1 07/25/2023 11:43:30 07/25/2023 12:05:46 Irritable bowel syndrome with diarrhea 822611541 K58.0 [id number] Mani Velez MD [facility] [place] [address] 12/31/2023 14:40:33 01/01/2024 08:02:41 Smoker 39729549 F17.218 F17.219 Z87.891 Multiple n odules of lung 415531406 R91.8 Moderate c hronic obstructive pulmonary disease 553304646 J44.9 Chronic ob structive pulmonary disease 48778674 J44.9 [id number] Sylwia Proctor MD [facility] General Surgery [address] [place] [address] 08/06/2024 12:27:15 08/06/2024 12:50:06 Irritable bowel syndrome with diarrhea 462530809 K58.0 Health Concerns Section Related Observation LastModified by Organization Detai ls LastModified Time None Recorded Concern Status LastModified by Organization Details LastModified Time None Recorded Advance Directives Directive N: Payers Encounter Date Sequence Insurance Name Policy Number Policy Mcpherson Covered Member ID Mcpherson Member ID Guarantor Name 05/28/2023 1 [facility] (MEDICARE REPLACEMENT/AD VANTAGE - PPO) [id number] Angela Moses [id number] Angela Moses 05/28/2023 2 [place] MED[place]ARE OR MEDICARE REPLACEMENT PRIMARY) Angela Moses [id number] Angela Moses 06/27/2023 1 [facility] (MEDICARE REPLACEMENT/AD VANTAGE - PPO) [id number] Angela Moses [id number] Angela Moses 06/27/2023 2 [place] MEDICARE REPLACEMENT PRIMARY) Angela Moses [id number] Angela Moses 07/25/2023 1 [facility] (MEDICARE REPLACEMENT/AD VANTAGE - PPO) [id number] Angela Moses [id number] Angela Moses 07/25/2023 2 [place] MEDICARE REPLACEMENT [place]IMARY) Angela Moses [id number] Angela Moses 12/31/2023 1 [facility] (MEDICARE REPLACEMENT/AD VANTAGE - PPO) [id number] Angela Moses [id number] Angela Moses 12/31/2023 2 [place]ARE OR MEDICARE REPLACEMENT PRIMARY) Angela Moses [id number] Angela Moses 08/06/2024 1 [facility] (MEDICARE REPLACEMENT/AD VANTAGE - PPO) [id number] Angela Moses [id number] Angela Moses 08/06/2024 2 [place]ARE OR MEDICARE REPLACEMENT PRIMARY) Angela Moses [id number] Angela Moses Notes Date Note Type Note Provider Name and Address Organization Details Recorded Time 3 text/html Primary care/Referring provider: Natasha Temple MD Patient is here to go over her chest CT and COPD management.Initial development of shortness of breath: 2017Duration of shortness of breath: 6 yearsCondition of shortness of breath: stableTiming of shortness of breath: morningFrequency: up to 3 times a dayLimits activities: yesAggravating factors: walking, vacuuming, sweeping, moppingAlleviating factors: restModified [employer] [place] ([employer]MRC) Dyspnea Scale - Grade 2Grade 0 I only get breathless with strenuous exercise .Grade 1 I get short of breath when hurrying on the level or walking up a slight hill .Grade 2 I walk slower than people of the same age on the level because of breathlessness or have to stop for breath when walking at my own pace on the level .Grade 3 I stop for breath after walking about 100 yards or after a few minutes on the level .Grade 4 I am too breathless to leave the house or I am breathless when dressing .Treatment history:Albuterol HFA as needed since 2016Qvar 40 mcg 2 puffs BID 2016 onlyPulmicort Flexhaler 180 mcg 2 puffs BID 2016-2019Flovent HFA 110 mcg 2 puffs BID 2019-noro Ellipta 62.5/25 mcg 1 inhalation daily since 11/2022Other symptoms:Drooling: noDysarthria: noNeck pain: noOdynophagia: noDysphagia: noWeak mastication: noFacial weakness: noNasal speech: noProtruding tongue: noProductive cough: whiteWheezing: noChest tightness: yesOrthopnea: noFrequent throat clearing or swallowing: yesPalpitations: noHeartburn: noEdema: noEnvironmental exposures:Nicotine smoke: 1 ppd 1972-present = 50 pack yearsPaint: noDye: noDust mites: yesMold: noDamp basement: yesWood burning stove: noAnimal dander: dogsCockroaches: yesPollen: yesArsenic: noAsbestos: noBeryllium: noCadmium: noChromium: noCoal smoke: noDiesel fumes: noNickel: noSilica: noSoot: noEPWORTH SLEEPINESS SCALE (ESS)CHANCE OF DOZING SCORE0 = would never doze1 = slight chance of dozing2 = moderate chance of dozing3 = high chance of dozingSITUATION AND CHANCE OF DOZINGSitting and reading - 0Watching television - 1Sitting inactive in a public place (e.g. a theater or meeting) - 1As a passenger in a car for an hour without a break - 0Lying down to rest in the afternoon when circumstances permit - 0Sitting and talking to someone - 0Sitting quietly after lunch without alcohol - 1In a car, while stopped for a few minutes in the traffic - 0TOTAL SCORE 3Subjectively, patient has a slight chance of dozing. Mani Velez MD [address] [place] [address], [facility] [address], [place], [address], [facility] [employer] 05/28/2023 12:07:22 3 text/html Hyperlipidemia taking her medication trying to watch low fat dietChronic pain continues to see the specialistCOPD continues to smokeIrritable bowel doing well Natasha Temple MD [address], [address], [place], [address], [employer] [facility] 10/04/2023 22:46:11 3 text/html ANGELA WAS SEEN IN THE OFFICE TODAY FOR A F/U. PT HAS IBS-D. SHE IS DOING WELL WITH DICYCLOMINE . SHE HAS NO COMPLAINTS TODAY . Sylwia Proctor MD [address], [address], [place], [address], [employer] [facility] 07/25/2023 12:06:29 4 text/html Primary care/Referring provider: Natasha Temple MD Patient is here to go over her chest CT and COPD management.Initial development of shortness of breath: 2017Duration of shortness of breath: 6 yearsCondition of shortness of breath: stableTiming of shortness of breath: morningFrequency: up to 3 times a dayLimits activities: yesAggravating factors: walking, vacuuming, sweeping, moppingAlleviating factors: restModified [employer] [place] (mMRC) Dyspnea Scale - Grade 2Grade 0 I only get breathless with strenuous exercise .Grade 1 I get short of breath when hurrying on the level or walking up a slight hill .Grade 2 I walk slower than people of the same age on the level because of breathlessness or have to stop for breath when walking at my own pace on the level .Grade 3 I stop for breath after walking about 100 yards or after a few minutes on the level .Grade 4 I am too breathless to leave the house or I am breathless when dressing .Treatment history:Albuterol HFA as needed since 2016Qvar 40 mcg 2 puffs BID 2016 onlyPulmicort Flexhaler 180 mcg 2 puffs BID 2016-2019Flovent HFA 110 mcg 2 puffs BID noro Ellipta 62.5/25 mcg 1 inhalation daily since 11/2022Other symptoms:Drooling: noDysarthria: noNeck pain: noOdynophagia: noDysphagia: noWeak mastication: noFacial weakness: noNasal speech: noProtruding tongue: noProductive cough: whiteWheezing: noChest tightness: yesOrthopnea: noFrequent throat clearing or swallowing: yesPalpitations: noHeartburn: noEdema: noEnvironmental exposures:Nicotine smoke: 1 ppd 1973-present = 51 pack yearsPaint: noDye: noDust mites: yesMold: noDamp basement: yesWood burning stove: noAnimal dander: dogsCockroaches: yesPollen: yesArsenic: noAsbestos: noBeryllium: noCadmium: noChromium: noCoal smoke: noDiesel fumes: noNickel: noSilica: noSoot: noEPWORTH SLEEPINESS SCALE (ESS)CHANCE OF DOZING SCORE0 = would never doze1 = slight chance of dozing2 = moderate chance of dozing3 = high chance of dozingSITUATION AND CHANCE OF DOZINGSitting and reading - 0Watching television - 2Sitting inactive in a public place (e.g. a theater or meeting) - 1As a passenger in a car for an hour without a break - 2Lying down to rest in the afternoon when circumstances permit - 1Sitting and talking to someone - 0Sitting quietly after lunch without alcohol - 1In a car, while stopped for a few minutes in the traffic - 0TOTAL SCORE 7Subjectively, patient has a slight chance of dozing. Mani Velez MD [address] [address], [place], [address], [employer] 12/31/2023 15:42:16 4 text/html ANGELA WAS SEEN IN THE OFFICE RODAY FOR A F/U. PT HAS IBS-D . DOING WELL WITH DICYCLOMINE 10 MG 2X DAILY PRN. Sylwia Proctor MD [address] [facility], [place] [address], [place], [address], [employer] 08/06/2024 13:05:27 OBGyn Episode No OBEpisode recorded.
== END 2024-12-03 12:45 | disposition home or self-care (01) ==
PROVIDERS: PCP Internal Medicine; Visit Provider Internal Medicine Pulmonary Disease
DX: R91.8 Other nonspecific abnormal finding of lung field (principal); J43.9 Emphysema, unspecified
CPT/HCPCS: 71250

== ENCOUNTER 2025-02-19 13:56 | Outpatient (CLI) | payer MEDICARE, MEDICAID, SELFPAY ==
--- NOTE | ~2025-02-19 | MR_ITS ---
MRI of the lumbar spine Clinical History: Radiculopathy Technique: Axial T2-weighted images, and sagittal T1-weighted, T2-weighted, and T2 fat-sat images wer e acquired. Findings: No fracture identified. There is 3 mm retrolisthesis of L2 over L3. There is 2 mm retrolist hesis of L3 over L4. No suspicious bone marrow signal abnormality seen. There are multilevel reactive marrow signal changes due to degenerative disc disease. At L1-L2, there is minimal disc bulge and mild to moderate facet arthropathy. No central canal stenos is. There is mild bilateral neural foraminal narrowing. At L2-L3, there is severe degenerative change. There is mild disc bulge with moderate facet arthropat hy. No central canal stenosis. There is severe left neural foraminal compromise, and mild right neura l foraminal compromise. At L3-L4, there is advanced degenerative distended. Diffuse disc bulge and advanced facet arthropathy result in moderate to severe spinal canal stenosis/thecal sac compression. There is severe left neur al foraminal narrowing, and mild right neural foraminal narrowing. At L4-L5, there is advanced degenerative disc narrowing. There is disc bulge and severe facet arthrop athy, especially in the right side. There is severe right neural foraminal narrowing. Left neural for amen is mild to moderately narrowed. No devyn central canal stenosis. There is right lateral recess s tenosis. At L5-S1, there is moderate facet arthropathy with minimal disc bulge. No spinal canal stenosis. Ther e is mild to moderate right neural foraminal narrowing. Left neural foramen preserved. Paravertebral soft tissues are unremarkable. Impression: Moderate to severe degenerative spondylosis overall, as detailed above. There is multilevel significa nt/severe neural foraminal narrowing. There is moderate canal stenosis at L3-L4. 3 mm retrolisthesis of L2 over L3. 2 mm retrolisthesis of L3 over L4. Reviewed, dictated and finalized at location M. Impression: Moderate to severe degenerative spondylosis overall, as detailed above. There i s multilevel significant/severe neural foraminal narrowing. There is moderate c anal stenosis at L3-L4. 3 mm retrolisthesis of L2 over L3. 2 mm retrolisthesis of L3 over L4.
== END 2025-02-19 13:57 | disposition home or self-care (01) ==
LOC: MICIMG 13:56
PROVIDERS: PCP Internal Medicine; Visit Provider Nurse Practitioner Family
DX: M47.816 Spondylosis without myelopathy or radiculopathy, lumbar region (principal); M48.061 Spinal stenosis, lumbar region without neurogenic claudication; M43.16 Spondylolisthesis, lumbar region
CPT/HCPCS: 72148